=== PATIENT | male | born 1945 | race Caucasian/White ===

== ENCOUNTER → 2017-04-03 | Outpatient (CLI) | payer MEDICARE ==
[2017-04-03 17:54] LABS: BASO % 0.6 % (0.0-1.0); EOS # 0.1 10^3/uL (0.0-0.50); EOS % 2.8 % (0.0-3.0); IMMATURE GRANULOCYTE % 0.3 % (0-0); LYMPH # 1.3 10^3/uL (1.5-4.5); LYMPH % 37.7 % (24.0-44.0); MEAN CORPUSCULAR HGB CONC 34.8 g/dl (32.0-36.5); MONO # 0.4 10^3/uL (0.0-0.8); MONO % 9.9 % (0.0-5.0); NEUTROPHILS # 1.7 10^3/uL (1.8-7.7); NEUTROPHILS % 48.7 % (36.0-66.0); PLATELET COUNT, AUTOMATED 166 10^3/uL (150-450); RED CELL DISTRIBUTION WIDTH 12.7 % (11.5-14.5); WHITE BLOOD COUNT 3.5 10^3/uL (4.0-10.0)
[2017-04-03 18:02] LABS: REASON FOR REVIEW COMPREHENSIVE REVIEW
[2017-04-03 18:38] LABS: ALBUMIN 3.7 GM/DL (3.2-5.2); ALBUMIN/GLOBULIN RATIO 1.19 (1.00-1.93); ALKALINE PHOSPHATASE 70 U/L (45-117); ALT/SGPT 47 U/L (12-78); ANION GAP 5 MEQ/L (8-16); AST/SGOT 23 U/L (15-37); BILIRUBIN,TOTAL 1.4 MG/DL (0.2-1.0); BLOOD UREA NITROGEN 17 MG/DL (7-18); CALCIUM LEVEL 8.8 MG/DL (8.8-10.2); CARBON DIOXIDE LEVEL 29 MEQ/L (21-32); CHLORIDE LEVEL 109 MEQ/L (98-107); CREATININE FOR GFR 1.18 MG/DL (0.70-1.30); GLOMERULAR FILTRATION RATE > 60.0 (>42); GLUCOSE, FASTING 96 MG/DL (83-110); POTASSIUM SERUM 4.3 MEQ/L (3.5-5.1); SODIUM LEVEL 143 MEQ/L (136-145); TOTAL PROTEIN 6.8 GM/DL (6.4-8.2)
[2017-04-03 18:40] LABS: VITAMIN B12 LEVEL > 2000 PG/ML (247-911)
[2017-04-03 19:00] LABS: ERYTHROCYTE SEDIMENTATION RATE 8 mm/hr (0-20)
== END ==
LOC: M LAB 16:24
PROVIDERS: ATTEND Nurse Practitioner Family
DX: D72.819 Decreased white blood cell count, unspecified (principal)

== ENCOUNTER → 2019-04-12 | Outpatient (REF) | payer MEDICARE ==
[2019-04-12 11:59] LABS: HEMATOCRIT 41.1 % (42.0-52.0); HEMOGLOBIN 13.5 g/dl (13.5-17.5); MEAN CORPUSCULAR HEMOGLOBIN 31.5 pg (27.0-33.0); MEAN CORPUSCULAR HGB CONC 32.8 g/dl (32.0-36.5); PLATELET COUNT, AUTOMATED 130 10^3/uL (150-450); RED BLOOD COUNT 4.28 10^6/uL (4.30-6.10)
[2019-04-12 12:29] LABS: WHITE BLOOD COUNT 1.9 10^3/uL (4.0-10.0)
[2019-04-12 12:33] LABS: ATYPICAL LYMPH 6 % (0-5); EOSINOPHILS 3 % (0-3); LYMPHOCYTES 32 % (16-44); MONOCYTES 2 % (0-5); NEUTROPHILS 57 % (28-66); PLATELET ESTIMATE DECREASED (NORMAL)
[2019-04-12 12:35] LABS: ALBUMIN 3.8 GM/DL (3.2-5.2); ALT/SGPT 33 U/L (12-78); BILIRUBIN,TOTAL 1.1 MG/DL (0.2-1.0); BLOOD UREA NITROGEN 11 MG/DL (7-18); CALCIUM LEVEL 8.6 MG/DL (8.8-10.2); CARBON DIOXIDE LEVEL 28 MEQ/L (21-32); CHLORIDE LEVEL 106 MEQ/L (98-107); CHOLESTEROL LEVEL 293 MG/DL (<200); CHOLESTEROL RISK RATIO 7.325 (<5); CREATININE FOR GFR 1.05 MG/DL (0.70-1.30); GLOMERULAR FILTRATION RATE > 60.0 (>42); GLUCOSE, FASTING 90 MG/DL (70-100); HDL CHOLESTEROL 40 MG/DL (>40); LDL CHOLESTEROL 227 MG/DL (<100); NON-HDL-C 253 MG/DL; POTASSIUM SERUM 4.4 MEQ/L (3.5-5.1); SODIUM LEVEL 140 MEQ/L (136-145); TOTAL PROTEIN 6.8 GM/DL (6.4-8.2); TRIGLYCERIDES LEVEL 129 MG/DL (<150)
[2019-04-12 12:52] LABS: HEMOGLOBIN A1c 5.6 %
== END ==
LOC: M SFHCPLAZ 10:26
PROVIDERS: ATTEND Nurse Practitioner Family
DX: I25.10 Atherosclerotic heart disease of native coronary artery without angina pectoris (principal); E78.5 Hyperlipidemia, unspecified; Z12.5 Encounter for screening for malignant neoplasm of prostate
CPT/HCPCS: 36415; 80053; 80061; 83036; 84439; 84443; 85025; 90670; 90682; G0008; G0009; G0103; G0463

== ENCOUNTER → 2019-07-03 | Outpatient (CLI) | payer MEDICARE ==
[~2019-07-03] MED LIST: ASPI81TA85 PO; CALC1TAB42 PO; CIAL5TAB PO; EZET10TA21 PO; OMEG1CAP16 PO; OMEP-218 PO; OMEP40CA97 PO; [UNRECOGNIZED DRUG - CODE] PO
--- NOTE | 2019-07-04 03:49 | REP ---
Clinical: Pancytopenia. Technique: Real time tilley scale ultrasound examination using curved array transducer. Findings: The spleen is moderately enlarged measuring 11.7 x 6.1 x 12.7 cm (index = 906), with normal echotexture and no focal splenic lesion identified. The right kidney is normal in reniform shape without hydronephrosis and measures 12.3 x 5.3 x 6.1 cm. No ascites in the visualized left upper quadrant. Impression: Splenomegaly. Electronically Signed by Prem Rivera MD 07/04/2019 03:40 A
== END ==
LOC: M RAD 08:19
PROVIDERS: ATTEND Internal Medicine Hematology & Oncology
DX: R16.1 Splenomegaly, not elsewhere classified (principal); D61.818 Other pancytopenia

== ENCOUNTER → 2019-08-12 | Outpatient (CLI) | payer MEDICARE ==
--- NOTE | 2019-08-12 10:28 | REP ---
ULTRASOUND ABDOMEN: Real-time sonographic evaluation of abdomen performed. There is sludge in the gallbladder with possible tiny stones. There is no gallbladder wall thickening or pericholecystic fluid. There is no intrahepatic or extrahepatic biliary dilatation, common bile duct measuring 3 mm. Liver demonstrates diffuse increased echotexture suggesting fibrofatty infiltration. No gross mass is seen. Pancreas is not well seen due to overlying bowel gas. Spleen is not significantly enlarged measuring 11.9 x 10.1 x 6.1 cm. No intrinsic abnormality is seen. Kidneys are normal in size and echotexture, right kidney measuring 11.6 x 4.6 x 6.3 cm and left kidney 11.8 x 5.3 x 6.3 cm. There is no renal mass, hydronephrosis, or nephrolithiasis. Visualized abdominal aorta is normal in caliber. It is not seen proximally due to overlying bowel gas. Mid aspect measures 1.9 cm and distal 1.8 cm in maximum AP dimension. No ascites is seen. IMPRESSION: Mild sludge in the gallbladder with possible tiny stones. No biliary dilatation or free fluid. Diffuse fibrofatty infiltration of the liver. Spleen is normal in size. Electronically Signed by Angel Espinoza MD 08/12/2019 01:25 P
== END ==
LOC: M RAD 08:47
PROVIDERS: ATTEND Internal Medicine Hematology & Oncology
DX: K76.0 Fatty (change of) liver, not elsewhere classified (principal); D61.818 Other pancytopenia

== ENCOUNTER → 2019-11-06 | Outpatient (REF) | payer MEDICARE ==
[~2019-11-06] MED LIST changes: +CIPR-249 PO
[2019-11-06 13:45] LABS: ALBUMIN 3.7 GM/DL (3.2-5.2); ALT/SGPT 23 U/L (12-78); BILIRUBIN,TOTAL 1.1 MG/DL (0.2-1.0); BLOOD UREA NITROGEN 18 MG/DL (7-18); CALCIUM LEVEL 8.6 MG/DL (8.8-10.2); CARBON DIOXIDE LEVEL 28 MEQ/L (21-32); CHLORIDE LEVEL 107 MEQ/L (98-107); CHOLESTEROL LEVEL 281 MG/DL (<200); CHOLESTEROL RISK RATIO 8.515 (<5); CREATININE FOR GFR 1.06 MG/DL (0.70-1.30); GLOMERULAR FILTRATION RATE > 60.0 (>42); GLUCOSE, FASTING 92 MG/DL (70-100); HDL CHOLESTEROL 33 MG/DL (>40); LDL CHOLESTEROL 227 MG/DL (<100); NON-HDL-C 248 MG/DL; POTASSIUM SERUM 4.2 MEQ/L (3.5-5.1); SODIUM LEVEL 139 MEQ/L (136-145); TOTAL PROTEIN 6.9 GM/DL (6.4-8.2); TRIGLYCERIDES LEVEL 104 MG/DL (<150)
[2019-11-06 13:55] LABS: HEPATITIS B SURFACE ANTIBODY NEGATIVE (POSITIVE)
[2019-11-06 14:05] LABS: HEPATITIS B SURFACE ANTIGEN NEGATIVE (NEGATIVE)
[2019-11-06 14:34] LABS: HEPATITIS B CORE ANTIBODY IGM NEGATIVE (NEGATIVE); HIV 1&2 SCREEN CENTAUR NEGATIVE (NEGATIVE)
[2019-11-06 16:11] LABS: CHLAMYDIA DNA AMPLIFICATION NEGATIVE (NEGATIVE); GC DNA AMPLIFICATION NEGATIVE (NEGATIVE)
== END ==
LOC: M SFHCPLAZ 09:31
PROVIDERS: ATTEND Physician Assistant
DX: Z20.2 Contact with and (suspected) exposure to infections with a predominantly sexual mode of transmission (principal); I25.10 Atherosclerotic heart disease of native coronary artery without angina pectoris; E78.5 Hyperlipidemia, unspecified; Z11.3 Encounter for screening for infections with a predominantly sexual mode of transmission

== ENCOUNTER → 2020-03-04 | Outpatient (CLI) | payer MEDICARE ==
[~2020-03-04] MED LIST changes: +ASPI1CHW3 PO; -ASPI81TA85 PO; +ASPI81TA86 PO; +DOXY100C PO
--- NOTE | 2020-03-10 15:50 | REP ---
SINGLE VIEW CHEST HISTORY: Diaphragmatic hernia. COMPARISON: 09/04/2014. TECHNIQUE: Single PA view of the chest is performed. FINDINGS: There is no acute infiltrate. Lungs are clear. Heart is normal in size. The mediastinal silhouette is unremarkable. No abnormal diaphragmatic contour is seen. IMPRESSION: No active pulmonary disease. No abnormalities detected. MTDD
== END ==
LOC: M ADAMS 12:03
PROVIDERS: ATTEND Physician Assistant
DX: K44.9 Diaphragmatic hernia without obstruction or gangrene (principal)

== ENCOUNTER → 2020-05-19 | Outpatient (REF) | payer MEDICARE ==
[2020-05-19 14:38] LABS: HEMOGLOBIN 11.6 g/dl (13.5-17.5); MEAN CORPUSCULAR HEMOGLOBIN 32.5 pg (27.0-33.0); MEAN CORPUSCULAR HGB CONC 33.1 g/dl (32.0-36.5); PLATELET COUNT, AUTOMATED 204 10^3/uL (150-450); RED BLOOD COUNT 3.57 10^6/uL (4.30-6.10); WHITE BLOOD COUNT 2.3 10^3/uL (4.0-10.0)
[2020-05-19 15:15] LABS: CHOLESTEROL RISK RATIO 7.457 (<5); FREE T4 1.29 NG/DL (0.76-1.46); PROSTATIC SPECIFIC AG MONITOR 18.7 NG/ML (< 4.00); THYROID STIMULATING HORMONE 2.32 uIU/ML (0.358-3.740)
[2020-05-19 15:37] LABS: ATYPICAL LYMPH 13 % (0-5); BASOPHILS 2 % (0-1); LYMPHOCYTES 31 % (16-44); METAMYELOCYTES 1 % (0-0); MONOCYTES 5 % (0-5); MYELOCYTES 1 % (0-0); NEUTROPHILS 40 % (28-66); PLATELET ESTIMATE NORMAL (NORMAL)
== END ==
LOC: M PLALAB 10:04
PROVIDERS: ATTEND Nurse Practitioner Family
DX: D61.818 Other pancytopenia (principal); E78.5 Hyperlipidemia, unspecified; R97.20 Elevated prostate specific antigen [PSA]

== ENCOUNTER → 2020-07-31 | Outpatient (REF) | payer MEDICARE ==
[2020-07-31 13:09] LABS: BASO % 0.7 % (0.0-1.0); EOS % 2.2 % (0.0-3.0); HEMOGLOBIN 10.8 g/dl (13.5-17.5); LYMPH # 0.5 10^3/uL (1.5-5.0); LYMPH % 36.8 % (24.0-44.0); MEAN CORPUSCULAR HEMOGLOBIN 32.8 pg (27.0-33.0); MEAN CORPUSCULAR HGB CONC 32.7 g/dl (32.0-36.5); MEAN CORPUSCULAR VOLUME 100.3 fl (80.0-96.0); MONO # 0.1 10^3/uL (0.0-0.8); MONO % 7.4 % (2.0-8.0); NEUTROPHILS % 52.2 % (36.0-66.0); PLATELET COUNT, AUTOMATED 137 10^3/uL (150-450); RED BLOOD COUNT 3.29 10^6/uL (4.30-6.10); WHITE BLOOD COUNT 1.4 10^3/uL (4.0-10.0)
[2020-07-31 13:10] LABS: APPEARANCE, URINE CLEAR (CLEAR); BACTERIA, URINE AUTO NEGATIVE (NEGATIVE); BILIRUBIN, URINE AUTO NEGATIVE (NEGATIVE); BLOOD, URINE BLOOD NEGATIVE (NEGATIVE); COLOR, URINE STRAW (YELLOW); GLUCOSE, URINE (UA) AUTO NEGATIVE (NEGATIVE); KETONE, URINE AUTO NEGATIVE (NEGATIVE); LEUKOCYTE ESTERASE, URINE AUTO NEGATIVE (NEGATIVE); MUCUS, URINE SMALL (NEGATIVE); NITRITE, URINE AUTO NEGATIVE (NEGATIVE); PROTEIN, URINE AUTO NEGATIVE (NEGATIVE); RBC, URINE AUTO 0 /HPF (0-3); SPECIFIC GRAVITY URINE AUTO 1.005 (1.002-1.035); SQUAMOUS EPITHELIAL CELL UR AU 0 /HPF (0-6); UROBILINOGEN, URINE AUTO 0.2 mg/dL (0.0-2.0); WBC, URINE AUTO 1 /HPF (0-3)
[2020-07-31 13:18] LABS: INR 1.05; PROTHROMBIN TIME 13.9 SECONDS (12.5-14.3)
[2020-07-31 13:19] LABS: PARTIAL THROMBOPLASTIN TIME 40.5 SECONDS (24.2-38.5)
[2020-07-31 13:36] LABS: NEUTROPHILS # 0.7 10^3/uL (1.5-8.5)
[2020-07-31 13:40] LABS: ALBUMIN 3.3 GM/DL (3.2-5.2); ALT/SGPT 23 U/L (12-78); BILIRUBIN,TOTAL 0.5 MG/DL (0.2-1.0); BLOOD UREA NITROGEN 15 MG/DL (7-18); CARBON DIOXIDE LEVEL 32 MEQ/L (21-32); CHLORIDE LEVEL 103 MEQ/L (98-107); CREATININE FOR GFR 0.98 MG/DL (0.70-1.30); GLOMERULAR FILTRATION RATE > 60.0 (>42); GLUCOSE, FASTING 109 MG/DL (70-100); NT-PRO BNP 316 PG/ML (<450); POTASSIUM SERUM 4.8 MEQ/L (3.5-5.1); SODIUM LEVEL 139 MEQ/L (136-145); TOTAL PROTEIN 6.9 GM/DL (6.4-8.2); TROPONIN I < 0.02 NG/ML (< 0.10)
== END ==
LOC: M SFHCPLAZ 09:51 → M SFHCADAM 09:52
PROVIDERS: ATTEND Family Medicine
DX: D61.818 Other pancytopenia (principal); I25.10 Atherosclerotic heart disease of native coronary artery without angina pectoris; Z01.818 Encounter for other preprocedural examination

== ENCOUNTER → 2020-09-01 | Outpatient (REF) | payer MEDICARE ==
[2020-09-01 17:50] LABS: BASO % 0.8 % (0.0-1.0); EOS % 0.8 % (0.0-3.0); HEMATOCRIT 28.8 % (42.0-52.0); HEMOGLOBIN 9.2 g/dl (13.5-17.5); LYMPH # 0.7 10^3/uL (1.5-5.0); LYMPH % 29.8 % (24.0-44.0); MEAN CORPUSCULAR HEMOGLOBIN 32.7 pg (27.0-33.0); MEAN CORPUSCULAR HGB CONC 31.9 g/dl (32.0-36.5); MEAN CORPUSCULAR VOLUME 102.5 fl (80.0-96.0); MONO # 0.2 10^3/uL (0.0-0.8); MONO % 9.2 % (2.0-8.0); NEUTROPHILS # 1.4 10^3/uL (1.5-8.5); NEUTROPHILS % 58.1 % (36.0-66.0); PLATELET COUNT, AUTOMATED 177 10^3/uL (150-450); RED BLOOD COUNT 2.81 10^6/uL (4.30-6.10); WHITE BLOOD COUNT 2.4 10^3/uL (4.0-10.0)
== END ==
LOC: M LABDRWAD 16:27 → M LAB REF 16:27
PROVIDERS: ATTEND Urology
DX: S37.8 Injury of other urinary and pelvic organs (principal); X58.XXXD Exposure to other specified factors, subsequent encounter; Y92.9 Unspecified place or not applicable

== ENCOUNTER → 2020-09-09 | Outpatient (REF) | payer MEDICARE ==
[2020-09-09 15:26] LABS: HEMATOCRIT 29.2 % (42.0-52.0); HEMOGLOBIN 9.8 g/dl (13.5-17.5); MEAN CORPUSCULAR HEMOGLOBIN 33.4 pg (27.0-33.0); MEAN CORPUSCULAR HGB CONC 33.6 g/dl (32.0-36.5); MEAN CORPUSCULAR VOLUME 99.7 fl (80.0-96.0); PLATELET COUNT, AUTOMATED 133 10^3/uL (150-450); RED BLOOD COUNT 2.93 10^6/uL (4.30-6.10); WHITE BLOOD COUNT 1.6 10^3/uL (4.0-10.0)
[2020-09-09 15:55] LABS: BASOPHILS 1 % (0-1); EOSINOPHILS 1 % (0-3); LYMPHOCYTES 43 % (16-44); MONOCYTES 4 % (0-5); NEUTROPHILS 51 % (28-66); PLATELET ESTIMATE DECREASED (NORMAL)
[2020-09-09 15:56] LABS: ALBUMIN 3.4 GM/DL (3.2-5.2); BLOOD UREA NITROGEN 14 MG/DL (7-18); C REACTIVE PROTEIN QUANTITATIV 8.68 MG/DL (0.00-0.30); CALCIUM LEVEL 9.3 MG/DL (8.8-10.2); CARBON DIOXIDE LEVEL 26 MEQ/L (21-32); CHLORIDE LEVEL 101 MEQ/L (98-107); CREATININE FOR GFR 0.99 MG/DL (0.70-1.30); GLOMERULAR FILTRATION RATE > 60.0 (>42); GLUCOSE, FASTING 104 MG/DL (70-100); PHOSPHORUS LEVEL 3.8 MG/DL (2.5-4.9); POTASSIUM SERUM 4.7 MEQ/L (3.5-5.1); SODIUM LEVEL 134 MEQ/L (136-145); URIC ACID 5.1 MG/DL (3.5-7.2)
== END ==
LOC: M SFHCPLAZ 14:38
PROVIDERS: ATTEND Nurse Practitioner Family
DX: M19.072 Primary osteoarthritis, left ankle and foot (principal); M79.672 Pain in left foot
CPT/HCPCS: 36415; 73630; 80069; 84550; 85025; 86140; G0463

== ENCOUNTER → 2020-09-09 | Outpatient (CLI) | payer MEDICARE ==
--- NOTE | 2020-09-09 15:32 | REPPI ---
INDICATION: M79.672 LEFT FOOT PAIN COMPARISON: 11/22/2007. TECHNIQUE: There are four views. 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 There is joint space narrowing of the PIP and DIP articulations, unchanged. Mineralization and joint spaces otherwise are unremarkable. There are tiny calcaneal plantar and Achilles spurs. 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 <Electronically signed by Angel Monahan > 09/09/20 [id number]
== END ==
LOC: M PLAIMG 14:38
PROVIDERS: ATTEND Nurse Practitioner Family
DX: M19.072 Primary osteoarthritis, left ankle and foot (principal); M79.672 Pain in left foot

== ENCOUNTER → 2020-11-30 | Outpatient (REF) | payer MEDICARE ==
[~2020-11-30] MED LIST changes: +OMEP40CA4 PO; -OMEP40CA97 PO
== END ==
LOC: M LABDRWAD 17:59
PROVIDERS: ATTEND Podiatrist Foot & Ankle Surgery
DX: M10.071 Idiopathic gout, right ankle and foot (principal)

== ENCOUNTER → 2021-02-01 | Outpatient (REF) | payer MEDICARE ==
[~2021-02-01] MED LIST changes: -DOXY100C PO; +DOXY100C3 PO
[2021-02-01 13:25] LABS: BLOOD UREA NITROGEN 20 MG/DL (7-18); CREATININE FOR GFR 1.18 MG/DL (0.70-1.30); GLOMERULAR FILTRATION RATE > 60.0 (>42)
== END ==
LOC: M LABDRWAD 12:28
PROVIDERS: ATTEND Surgery Vascular Surgery
DX: M31.6 Other giant cell arteritis (principal)

== ENCOUNTER → 2021-03-09 | Outpatient (CLI) | payer MEDICARE ==
--- NOTE | 2021-03-09 11:23 | REP ---
INDICATION: ACUTE BILATERAL THORACIC BACK PAIN. COMPARISON: None. TECHNIQUE: AP and lateral views FINDINGS: There is a grade 2 T7 anterior wedge compression deformity. There is anterior disc space narrowing at 1 level above and 1 level below. The pedicles are intact bilaterally. IMPRESSION: Age undetermined thoracic spine compression fracture as described above. <Electronically signed by Vladimir Ivy > 03/09/21 [id number]
== END ==
LOC: M ADAMS 11:00
PROVIDERS: ATTEND Psychiatry & Neurology Neurology
DX: R93.7 Abnormal findings on diagnostic imaging of other parts of musculoskeletal system (principal); M54.6 Pain in thoracic spine

== ENCOUNTER → 2021-08-10 | Outpatient (REF) | payer MEDICARE ==
[~2021-08-10] MED LIST changes: +OMEP-173 PO; -OMEP-218 PO
[2021-08-10 17:42] LABS: BASO % 0.4 % (0.0-1.0); EOS % 0.4 % (0.0-3.0); HEMATOCRIT 30.9 % (42.0-52.0); HEMOGLOBIN 10.3 g/dl (13.5-17.5); LYMPH # 0.5 10^3/uL (1.5-5.0); LYMPH % 19.7 % (24.0-44.0); MEAN CORPUSCULAR HEMOGLOBIN 34.2 pg (27.0-33.0); MEAN CORPUSCULAR HGB CONC 33.3 g/dl (32.0-36.5); MEAN CORPUSCULAR VOLUME 102.7 fl (80.0-96.0); MONO # 0.2 10^3/uL (0.0-0.8); MONO % 7.1 % (2.0-8.0); NEUTROPHILS # 1.8 10^3/uL (1.5-8.5); PLATELET COUNT, AUTOMATED 139 10^3/uL (150-450); RED BLOOD COUNT 3.01 10^6/uL (4.30-6.10); WHITE BLOOD COUNT 2.5 10^3/uL (4.0-10.0)
[2021-08-10 18:04] LABS: CK-MB VALUE MASS < 1.0 NG/ML (<3.6); CPK CREATINE PHOSPHOKINASE 52 U/L (39-308); MB/CK RELATIVE INDEX 1.92 (< OR =4)
[2021-08-10 18:11] LABS: BLOOD UREA NITROGEN 15 MG/DL (7-18); CARBON DIOXIDE LEVEL 28 MEQ/L (21-32); CHLORIDE LEVEL 104 MEQ/L (98-107); CREATININE FOR GFR 1.15 MG/DL (0.70-1.30); GLOMERULAR FILTRATION RATE > 60.0 (>42); GLUCOSE, FASTING 97 MG/DL (70-100); POTASSIUM SERUM 4.4 MEQ/L (3.5-5.1); SODIUM LEVEL 138 MEQ/L (136-145)
[2021-08-10 18:12] LABS: ALBUMIN 3.2 GM/DL (3.2-5.2); ALT/SGPT 22 U/L (12-78); BILIRUBIN,TOTAL 0.5 MG/DL (0.2-1.0); CALCIUM LEVEL 8.8 MG/DL (8.8-10.2); CHOLESTEROL LEVEL 188 MG/DL (<200); CHOLESTEROL RISK RATIO 5.529 (<5); FREE T4 1.12 NG/DL (0.76-1.46); HDL CHOLESTEROL 34 MG/DL (>40); HEMOGLOBIN A1c 6.2 %; LDL CHOLESTEROL 136 MG/DL (<100); NON-HDL-C 154 MG/DL; NT-PRO BNP 927 PG/ML (<450); TOTAL PROTEIN 6.6 GM/DL (6.4-8.2); TRIGLYCERIDES LEVEL 90 MG/DL (<150)
[2021-08-12 23:07] LABS: PSA % FREE 19.2 % (.); PSA FREE 1.79 ng/mL; PSA TOTAL 9.3 ng/mL (0.0-4.0)
== END ==
LOC: M SFHCPLAZ 13:21
PROVIDERS: ATTEND Nurse Practitioner Family
DX: E78.5 Hyperlipidemia, unspecified (principal); D61.818 Other pancytopenia; R60.0 Localized edema; N40.0 Benign prostatic hyperplasia without lower urinary tract symptoms; R06.02 Shortness of breath; Z79.52 Long term (current) use of systemic steroids; Z79.899 Other long term (current) drug therapy

== ENCOUNTER → 2021-11-22 | Outpatient (CLI) | payer MEDICARE | LOC: M ADAMS 14:23 | PROVIDERS: ATTEND Physician Assistant | DX: R91.8 Other nonspecific abnormal finding of lung field (principal); S20.212A Contusion of left front wall of thorax, initial encounter; X58.XXXA Exposure to other specified factors, initial encounter; Y92.9 Unspecified place or not applicable; Y93.9 Activity, unspecified; Y99.9 Unspecified external cause status ==

== ENCOUNTER → 2021-11-22 | Outpatient (REF) | payer MEDICARE | LOC: M SFHCADAM 14:17 | PROVIDERS: ATTEND Physician Assistant | DX: N40.0 Benign prostatic hyperplasia without lower urinary tract symptoms (principal) ==

== ENCOUNTER → 2022-05-10 | Outpatient (REF) | payer MEDICARE ==
[2022-05-10 17:54] LABS: BASO % 0.4 % (0.0-1.0); HEMATOCRIT 28.1 % (42.0-52.0); HEMOGLOBIN 9.1 g/dl (13.5-17.5); LYMPH # 0.3 10^3/uL (1.5-5.0); LYMPH % 5.8 % (24.0-44.0); MEAN CORPUSCULAR HEMOGLOBIN 35.4 pg (27.0-33.0); MEAN CORPUSCULAR HGB CONC 32.4 g/dl (32.0-36.5); MEAN CORPUSCULAR VOLUME 109.3 fl (80.0-96.0); MONO # 0.3 10^3/uL (0.0-0.8); MONO % 5.9 % (2.0-8.0); NEUTROPHILS # 4.6 10^3/uL (1.5-8.5); RED BLOOD COUNT 2.57 10^6/uL (4.30-6.10); WHITE BLOOD COUNT 5.4 10^3/uL (4.0-10.0)
[2022-05-10 18:10] LABS: APPEARANCE, URINE MANUAL CLEAR (CLEAR); BILIRUBIN, URINE MANUAL NEGATIVE (NEGATIVE); COLOR, URINE MANUAL DK YELLOW (YELLOW); GLUCOSE, URINE (UA) MANUAL NEGATIVE (NEGATIVE); KETONE, URINE MANUAL 2+ mg/dL (NEGATIVE); NITRITE, URINE MANUAL NEGATIVE (NEGATIVE); PROTEIN, URINE MANUAL 2+ mg/dL (NEGATIVE); SPECIFIC GRAVITY,URINE MANUAL 1.025 (1.002-1.035); UROBILINOGEN, URINE MANUAL NORMAL (NORMAL)
[2022-05-10 18:11] LABS: BLOOD URINE MANUAL TRACE (NEGATIVE); LEUKOCYTE ESTERASE, URINE MAN TRACE (NEGATIVE)
[2022-05-10 18:27] LABS: HEMOGLOBIN A1c 5.8 % (4.0-6.0)
[2022-05-10 18:43] LABS: PLATELET COUNT, AUTOMATED 96 10^3/uL (150-450)
[2022-05-10 19:01] LABS: ALBUMIN 2.7 G/DL (3.2-5.2); CARBON DIOXIDE LEVEL 25 MMOL/L (20-31); CHLORIDE LEVEL 101 MMOL/L (98-107); POTASSIUM SERUM 3.9 MMOL/L (3.5-5.1); SODIUM LEVEL 138 MMOL/L (136-145)
[2022-05-10 19:06] LABS: ALKALINE PHOSPHATASE 64 U/L (46-116)
[2022-05-10 19:07] LABS: ALT/SGPT 13 U/L (7.0-40); BLOOD UREA NITROGEN 15 MG/DL (9-23); CALCIUM LEVEL 8.1 MG/DL (8.3-10.6); GLUCOSE, FASTING 128 MG/DL (74-106)
[2022-05-10 19:09] LABS: AST/SGOT 16 U/L (<34); CREATININE FOR GFR 0.97 MG/DL (0.70-1.30); GLOMERULAR FILTRATION RATE > 60.0 (>42)
[2022-05-10 19:40] LABS: BACTERIA, URINE MOD AMOUNT; MUCUS, URINE LARGE AMOUNT (NEGATIVE); SQUAMOUS EPITHELIAL CELL URINE SMALL AMOUNT /hpf (SMALL AMT)
== END ==
LOC: M SFHCADAM 11:54
PROVIDERS: ATTEND Family Medicine
DX: R73.03 Prediabetes (principal); D72.819 Decreased white blood cell count, unspecified; N30.90 Cystitis, unspecified without hematuria; M31.6 Other giant cell arteritis

== ENCOUNTER → 2022-05-10 | Outpatient (CLI) | payer MEDICARE | LOC: M ADAMS 12:00 | PROVIDERS: ATTEND Family Medicine | DX: R53.1 Weakness (principal) ==

== ENCOUNTER → 2022-05-17 | Outpatient (CLI) | payer MEDICARE ==
[2022-05-17 09:15] LABS: BASO % 0.2 % (0.0-1.0); HEMATOCRIT 28.2 % (42.0-52.0); HEMOGLOBIN 9.2 g/dl (13.5-17.5); LYMPH % 15.7 % (24.0-44.0); MEAN CORPUSCULAR HEMOGLOBIN 35.5 pg (27.0-33.0); MEAN CORPUSCULAR HGB CONC 32.6 g/dl (32.0-36.5); MEAN CORPUSCULAR VOLUME 108.9 fl (80.0-96.0); MONO # 0.2 10^3/uL (0.0-0.8); MONO % 3.3 % (2.0-8.0); NEUTROPHILS # 4.9 10^3/uL (1.5-8.5); PLATELET COUNT, AUTOMATED 113 10^3/uL (150-450); RED BLOOD COUNT 2.59 10^6/uL (4.30-6.10); WHITE BLOOD COUNT 6.1 10^3/uL (4.0-10.0)
== END ==
LOC: M LAB 08:43
PROVIDERS: ATTEND Family Medicine
DX: D46.9 Myelodysplastic syndrome, unspecified (principal); M31.6 Other giant cell arteritis

== ENCOUNTER → 2022-05-18 | Outpatient (CLI) | payer MEDICARE | LOC: M ADAMS 10:30 | PROVIDERS: ATTEND Physician Assistant | DX: J20.9 Acute bronchitis, unspecified (principal) ==

== ENCOUNTER → 2022-05-23 | Outpatient (REF) | payer MEDICARE | LOC: M SFHCADAM 10:56 | PROVIDERS: ATTEND Physician Assistant | DX: M31.6 Other giant cell arteritis (principal) ==

== ENCOUNTER → 2022-05-23 | Outpatient (CLI) | payer MEDICARE ==
[2022-05-23 16:46] LABS: CPK CREATINE PHOSPHOKINASE 17 U/L (46-171)
[2022-05-23 17:21] LABS: HEPATITIS B SURFACE ANTIBODY NEGATIVE (POSITIVE)
[2022-05-23 17:32] LABS: HEPATITIS B SURFACE ANTIGEN NEGATIVE (NEGATIVE)
[2022-05-23 17:53] LABS: HEPATITIS C VIRUS ABY INDEX 0.1 INDEX (<0.8)
[2022-05-27 21:08] LABS: ALDOLASE 4.1 U/L (3.3-10.3); ANCA-ATYPICAL <1:20 titer (Neg:<1:20); CYTOPLASMIC NEUTROP AB ANCA-C <1:20 titer (Neg:<1:20); G6PD2 2.71 x10E6/uL (4.14-5.80); HEPATITIS B CORE ANTIBODY IGG Negative (Negative); PERINUCLEAR AB ANCA-P <1:20 titer (Neg:<1:20)
== END ==
LOC: M LABDRWAD 11:10
PROVIDERS: ATTEND Internal Medicine
DX: M31.6 Other giant cell arteritis (principal); M25.40 Effusion, unspecified joint; R29.898 Other symptoms and signs involving the musculoskeletal system; Z11.59 Encounter for screening for other viral diseases

== ENCOUNTER → 2022-06-17 | Outpatient (REF) | payer MEDICARE | LOC: M SFHCADAM 08:51 | PROVIDERS: ATTEND Internal Medicine | DX: M31.6 Other giant cell arteritis (principal) ==

== ENCOUNTER → 2022-07-01 | Outpatient (REF) | payer MEDICARE | LOC: M SFHCADAM 09:01 | PROVIDERS: ATTEND Internal Medicine | DX: M31.6 Other giant cell arteritis (principal) ==

== ENCOUNTER → 2022-07-11 | Outpatient (REF) | payer MEDICARE ==
[2022-07-11 14:30] LABS: BASO % 0.1 % (0.0-1.0); HEMATOCRIT 29.4 % (42.0-52.0); HEMOGLOBIN 9.7 g/dl (13.5-17.5); LYMPH # 0.3 10^3/uL (1.5-5.0); LYMPH % 4.9 % (24.0-44.0); MEAN CORPUSCULAR HEMOGLOBIN 37.7 pg (27.0-33.0); MONO # 0.3 10^3/uL (0.0-0.8); MONO % 4.6 % (2.0-8.0); NEUTROPHILS # 5.7 10^3/uL (1.5-8.5); NEUTROPHILS % 85.9 % (36.0-66.0); PLATELET COUNT, AUTOMATED 150 10^3/uL (150-450); RED BLOOD COUNT 2.57 10^6/uL (4.30-6.10); WHITE BLOOD COUNT 6.7 10^3/uL (4.0-10.0)
[2022-07-11 14:33] LABS: MEAN CORPUSCULAR VOLUME 114.4 fl (80.0-96.0)
[2022-07-11 14:42] LABS: ERYTHROCYTE SEDIMENTATION RATE 70 mm/hr (0-20)
[2022-07-11 14:53] LABS: ALBUMIN 3.1 G/DL (3.2-5.2); ALKALINE PHOSPHATASE 62 U/L (46-116); ALT/SGPT 28 U/L (7.0-40); AST/SGOT 12 U/L (<34); BILIRUBIN,DIRECT 0.2 MG/DL (<0.4); BILIRUBIN,TOTAL 0.5 MG/DL (0.3-1.2); BLOOD UREA NITROGEN 22 MG/DL (9-23); CALCIUM LEVEL 8.9 MG/DL (8.3-10.6); CARBON DIOXIDE LEVEL 29 MMOL/L (20-31); CHLORIDE LEVEL 101 MMOL/L (98-107); CREATININE FOR GFR 0.98 MG/DL (0.70-1.30); GLOMERULAR FILTRATION RATE > 60.0 (>42); GLUCOSE, FASTING 118 MG/DL (74-106); POTASSIUM SERUM 5.3 MMOL/L (3.5-5.1); SODIUM LEVEL 137 MMOL/L (136-145); TOTAL PROTEIN 6.5 G/DL (5.7-8.2)
== END ==
LOC: M SFHCRHEU 11:13
PROVIDERS: ATTEND Internal Medicine
DX: M31.6 Other giant cell arteritis (principal)

== ENCOUNTER → 2022-07-29 | Outpatient (REF) | payer MEDICARE | LOC: M SFHCADAM 10:40 | PROVIDERS: ATTEND Internal Medicine | DX: M31.6 Other giant cell arteritis (principal) ==

== ENCOUNTER → 2022-08-02 | Outpatient (REF) | payer MEDICARE ==
[2022-08-02 17:09] LABS: BASO % 0.2 % (0.0-1.0); HEMATOCRIT 31.5 % (42.0-52.0); HEMOGLOBIN 10.2 g/dl (13.5-17.5); LYMPH # 0.3 10^3/uL (1.5-5.0); LYMPH % 5.8 % (24.0-44.0); MEAN CORPUSCULAR HEMOGLOBIN 37.9 pg (27.0-33.0); MEAN CORPUSCULAR HGB CONC 32.4 g/dl (32.0-36.5); MONO # 0.1 10^3/uL (0.0-0.8); NEUTROPHILS # 3.9 10^3/uL (1.5-8.5); NEUTROPHILS % 89.8 % (36.0-66.0); PLATELET COUNT, AUTOMATED 105 10^3/uL (150-450); RED BLOOD COUNT 2.69 10^6/uL (4.30-6.10); WHITE BLOOD COUNT 4.3 10^3/uL (4.0-10.0)
[2022-08-02 17:13] LABS: MEAN CORPUSCULAR VOLUME 117.1 fl (80.0-96.0)
[2022-08-02 17:55] LABS: ALBUMIN 3.5 G/DL (3.2-5.2); ALKALINE PHOSPHATASE 57 U/L (46-116); ALT/SGPT 14 U/L (7.0-40); AST/SGOT 11 U/L (<34); BILIRUBIN,DIRECT 0.3 MG/DL (<0.4); BILIRUBIN,TOTAL 1.1 MG/DL (0.3-1.2); BLOOD UREA NITROGEN 20 MG/DL (9-23); CARBON DIOXIDE LEVEL 30 MMOL/L (20-31); CHLORIDE LEVEL 102 MMOL/L (98-107); GLUCOSE, FASTING 145 MG/DL (74-106); POTASSIUM SERUM 5.2 MMOL/L (3.5-5.1); SODIUM LEVEL 138 MMOL/L (136-145); TOTAL 25(OH) VITAMIN D 31.1 NG/ML (20.0-100.0); TOTAL PROTEIN 6.2 G/DL (5.7-8.2)
[2022-08-02 18:24] LABS: ERYTHROCYTE SEDIMENTATION RATE 44 mm/hr (0-20)
[2022-08-02 18:25] LABS: PLATELET ESTIMATE DECREASED (NORMAL)
[2022-08-02 20:28] LABS: CREATININE FOR GFR 1.06 MG/DL (0.70-1.30); GLOMERULAR FILTRATION RATE > 60.0 (>42)
== END ==
LOC: M SFHCRHEU 12:56
PROVIDERS: ATTEND Internal Medicine
DX: M31.6 Other giant cell arteritis (principal); Z79.899 Other long term (current) drug therapy

== ENCOUNTER → 2022-08-23 | Outpatient (REF) | payer MEDICARE ==
[2022-08-23 18:00] LABS: BASO % 0.2 % (0.0-1.0); HEMATOCRIT 33.7 % (42.0-52.0); LYMPH # 0.2 10^3/uL (1.5-5.0); LYMPH % 3.5 % (24.0-44.0); MEAN CORPUSCULAR HEMOGLOBIN 38.2 pg (27.0-33.0); MEAN CORPUSCULAR HGB CONC 32.6 g/dl (32.0-36.5); MONO # 0.3 10^3/uL (0.0-0.8); MONO % 5.2 % (2.0-8.0); NEUTROPHILS # 4.8 10^3/uL (1.5-8.5); NEUTROPHILS % 89.4 % (36.0-66.0); PLATELET COUNT, AUTOMATED 130 10^3/uL (150-450); RED BLOOD COUNT 2.88 10^6/uL (4.30-6.10); WHITE BLOOD COUNT 5.4 10^3/uL (4.0-10.0)
[2022-08-23 18:30] LABS: ALBUMIN 3.3 G/DL (3.2-5.2); ALKALINE PHOSPHATASE 58 U/L (46-116); ALT/SGPT 48 U/L (7.0-40); AST/SGOT 20 U/L (<34); BILIRUBIN,DIRECT 0.3 MG/DL (<0.4); BILIRUBIN,TOTAL 0.8 MG/DL (0.3-1.2); BLOOD UREA NITROGEN 21 MG/DL (9-23); CALCIUM LEVEL 8.9 MG/DL (8.3-10.6); CARBON DIOXIDE LEVEL 30 MMOL/L (20-31); CHLORIDE LEVEL 101 MMOL/L (98-107); CREATININE FOR GFR 1.06 MG/DL (0.70-1.30); GLOMERULAR FILTRATION RATE > 60.0 (>42); GLUCOSE, FASTING 156 MG/DL (74-106); POTASSIUM SERUM 4.9 MMOL/L (3.5-5.1); SODIUM LEVEL 138 MMOL/L (136-145); TOTAL PROTEIN 6.1 G/DL (5.7-8.2)
[2022-08-23 19:10] LABS: PLATELET ESTIMATE NORMAL (NORMAL)
[2022-08-23 19:19] LABS: ERYTHROCYTE SEDIMENTATION RATE 49 mm/hr (0-20)
== END ==
LOC: M SFHCADAM 13:55
PROVIDERS: ATTEND Internal Medicine
DX: M31.6 Other giant cell arteritis (principal)

== ENCOUNTER → 2022-09-06 | Outpatient (CLI) | payer MEDICARE | LOC: M WHC 12:18 | PROVIDERS: ATTEND Internal Medicine | DX: Z79.52 Long term (current) use of systemic steroids (principal) ==

== ENCOUNTER → 2022-09-21 | Outpatient (REF) | payer MEDICARE ==
[~2022-09-21] MED LIST changes: +ASPI-655 PO; -ASPI1CHW3 PO
== END ==
LOC: M SFHCADAM 09:29
PROVIDERS: ATTEND Physician Assistant
DX: R97.20 Elevated prostate specific antigen [PSA] (principal); M31.6 Other giant cell arteritis

== ENCOUNTER → 2022-09-23 | Outpatient (REF) | payer MEDICARE ==
[2022-09-23 17:23] LABS: HEMATOCRIT 31.3 % (42.0-52.0); HEMOGLOBIN 10.6 g/dl (13.5-17.5); LYMPH # 0.2 10^3/uL (1.5-5.0); MEAN CORPUSCULAR HGB CONC 33.9 g/dl (32.0-36.5); MEAN CORPUSCULAR VOLUME 112.2 fl (80.0-96.0); MONO # 0.2 10^3/uL (0.0-0.8); NEUTROPHILS # 4.3 10^3/uL (1.5-8.5); NEUTROPHILS % 89.3 % (36.0-66.0); PLATELET COUNT, AUTOMATED 117 10^3/uL (150-450); RED BLOOD COUNT 2.79 10^6/uL (4.30-6.10); WHITE BLOOD COUNT 4.8 10^3/uL (4.0-10.0)
[2022-09-23 17:34] LABS: ALBUMIN 3.2 G/DL (3.2-5.2); ALKALINE PHOSPHATASE 58 U/L (46-116); ALT/SGPT 20 U/L (7.0-40); AST/SGOT 14 U/L (<34); BILIRUBIN,DIRECT 0.2 MG/DL (<0.4); BILIRUBIN,TOTAL 0.6 MG/DL (0.3-1.2); BLOOD UREA NITROGEN 21 MG/DL (9-23); CALCIUM LEVEL 8.5 MG/DL (8.3-10.6); CARBON DIOXIDE LEVEL 28 MMOL/L (20-31); CHLORIDE LEVEL 102 MMOL/L (98-107); CREATININE FOR GFR 1.06 MG/DL (0.70-1.30); GLOMERULAR FILTRATION RATE > 60.0 (>42); GLUCOSE, FASTING 151 MG/DL (74-106); POTASSIUM SERUM 4.6 MMOL/L (3.5-5.1); SODIUM LEVEL 137 MMOL/L (136-145); TOTAL PROTEIN 5.9 G/DL (5.7-8.2)
[2022-09-23 17:39] LABS: ERYTHROCYTE SEDIMENTATION RATE 54 mm/hr (0-20)
[2022-09-23 18:01] LABS: HEMOGLOBIN A1c 6.2 % (4.0-6.0)
== END ==
LOC: M SFHCRHEU 13:00
PROVIDERS: ATTEND Internal Medicine
DX: R73.9 Hyperglycemia, unspecified (principal); M31.6 Other giant cell arteritis

== ENCOUNTER → 2022-10-03 | Outpatient (CLI) | payer MEDICARE | LOC: M ADAMS 13:09 | PROVIDERS: ATTEND Physician Assistant | DX: J06.9 Acute upper respiratory infection, unspecified (principal); R05.2 Subacute cough ==

== ENCOUNTER → 2022-10-06 | Outpatient (REF) | payer MEDICARE ==
[2022-10-06 17:21] LABS: BLOOD UREA NITROGEN 21 MG/DL (9-23); CALCIUM LEVEL 8.6 MG/DL (8.3-10.6); CARBON DIOXIDE LEVEL 27 MMOL/L (20-31); CHLORIDE LEVEL 103 MMOL/L (98-107); CREATININE FOR GFR 1.08 MG/DL (0.70-1.30); GLOMERULAR FILTRATION RATE > 60.0 (>42); GLUCOSE, FASTING 200 MG/DL (74-106); POTASSIUM SERUM 4.6 MMOL/L (3.5-5.1); SODIUM LEVEL 137 MMOL/L (136-145)
[2022-10-06 17:37] LABS: HEMOGLOBIN A1c 6.1 % (4.0-6.0)
== END ==
LOC: M SFHCADAM 13:10
PROVIDERS: ATTEND Internal Medicine
DX: M31.6 Other giant cell arteritis (principal); R73.03 Prediabetes; R60.0 Localized edema

== ENCOUNTER → 2022-11-02 | Outpatient (REF) | payer MEDICARE | LOC: M SFHCDERM 16:01 | PROVIDERS: ATTEND Nurse Practitioner Family | DX: C44.319 Basal cell carcinoma of skin of other parts of face (principal) ==

== ENCOUNTER → 2022-12-02 | Outpatient (CLI) | payer MEDICARE | LOC: M RAD 13:33 | PROVIDERS: ATTEND Physician Assistant | DX: N50.89 Other specified disorders of the male genital organs (principal) ==

== ENCOUNTER → 2022-12-15 | Outpatient (REF) | payer MEDICARE ==
[2022-12-15 16:52] LABS: BASO % 0.3 % (0.0-1.0); EOS % 0.3 % (0.0-3.0); HEMOGLOBIN 11.5 g/dl (13.5-17.5); LYMPH # 0.9 10^3/uL (1.5-5.0); LYMPH % 26.1 % (24.0-44.0); MEAN CORPUSCULAR HEMOGLOBIN 37.6 pg (27.0-33.0); MEAN CORPUSCULAR HGB CONC 33.8 g/dl (32.0-36.5); MEAN CORPUSCULAR VOLUME 111.1 fl (80.0-96.0); MONO # 0.3 10^3/uL (0.0-0.8); MONO % 8.3 % (2.0-8.0); NEUTROPHILS # 2.3 10^3/uL (1.5-8.5); NEUTROPHILS % 64.2 % (36.0-66.0); PLATELET COUNT, AUTOMATED 105 10^3/uL (150-450); RED BLOOD COUNT 3.06 10^6/uL (4.30-6.10); WHITE BLOOD COUNT 3.6 10^3/uL (4.0-10.0)
[2022-12-15 17:19] LABS: ALBUMIN 3.4 G/DL (3.2-5.2); ALKALINE PHOSPHATASE 63 U/L (46-116); ALT/SGPT 14 U/L (7.0-40); AST/SGOT < 8 U/L (<34); BILIRUBIN,DIRECT 0.2 MG/DL (<0.4); BILIRUBIN,TOTAL 0.8 MG/DL (0.3-1.2); BLOOD UREA NITROGEN 20 MG/DL (9-23); CALCIUM LEVEL 8.8 MG/DL (8.3-10.6); CARBON DIOXIDE LEVEL 30 MMOL/L (20-31); CHLORIDE LEVEL 106 MMOL/L (98-107); CREATININE FOR GFR 1.04 MG/DL (0.70-1.30); GLOMERULAR FILTRATION RATE > 60.0 (>42); GLUCOSE, FASTING 99 MG/DL (74-106); POTASSIUM SERUM 4.3 MMOL/L (3.5-5.1); SODIUM LEVEL 142 MMOL/L (136-145); TOTAL PROTEIN 5.8 G/DL (5.7-8.2)
[2022-12-15 17:20] LABS: TOTAL 25(OH) VITAMIN D 43.8 NG/ML (20.0-100.0)
[2022-12-15 17:28] LABS: ERYTHROCYTE SEDIMENTATION RATE 37 mm/hr (0-20)
== END ==
LOC: M SFHCRHEU 14:24
PROVIDERS: ATTEND Internal Medicine
DX: M31.6 Other giant cell arteritis (principal); S22.080S Wedge compression fracture of T11-T12 vertebra, sequela; Z79.899 Other long term (current) drug therapy

== ENCOUNTER → 2023-01-23 | Outpatient (CLI) | payer MEDICARE | LOC: M PLAIMG 12:56 | PROVIDERS: ATTEND Family Medicine | DX: R91.8 Other nonspecific abnormal finding of lung field (principal) ==

== ENCOUNTER → 2023-02-08 | Outpatient (REF) | payer MEDICARE ==
[2023-02-08 13:14] LABS: BASO % 0.2 % (0.0-1.0); HEMOGLOBIN 11.2 g/dl (13.5-17.5); LYMPH # 0.4 10^3/uL (1.5-5.0); LYMPH % 9.2 % (24.0-44.0); MEAN CORPUSCULAR HEMOGLOBIN 35.9 pg (27.0-33.0); MEAN CORPUSCULAR HGB CONC 32.9 g/dl (32.0-36.5); MONO # 0.2 10^3/uL (0.0-0.8); MONO % 4.3 % (2.0-8.0); NEUTROPHILS # 3.6 10^3/uL (1.5-8.5); NEUTROPHILS % 84.9 % (36.0-66.0); PLATELET COUNT, AUTOMATED 116 10^3/uL (150-450); RED BLOOD COUNT 3.12 10^6/uL (4.30-6.10); WHITE BLOOD COUNT 4.2 10^3/uL (4.0-10.0)
[2023-02-08 13:20] LABS: ALBUMIN 3.4 G/DL (3.2-5.2); ALKALINE PHOSPHATASE 64 U/L (46-116); ALT/SGPT 11 U/L (7.0-40); AST/SGOT < 8 U/L (<34); BILIRUBIN,DIRECT 0.2 MG/DL (<0.4); BILIRUBIN,TOTAL 0.6 MG/DL (0.3-1.2); BLOOD UREA NITROGEN 21 MG/DL (9-23); CALCIUM LEVEL 8.7 MG/DL (8.3-10.6); CARBON DIOXIDE LEVEL 29 MMOL/L (20-31); CHLORIDE LEVEL 105 MMOL/L (98-107); CREATININE FOR GFR 1.14 MG/DL (0.70-1.30); GLOMERULAR FILTRATION RATE > 60.0 (>42); GLUCOSE, FASTING 138 MG/DL (74-106); POTASSIUM SERUM 5.2 MMOL/L (3.5-5.1); SODIUM LEVEL 139 MMOL/L (136-145); TOTAL PROTEIN 6.2 G/DL (5.7-8.2)
[2023-02-08 13:53] LABS: ERYTHROCYTE SEDIMENTATION RATE 57 mm/hr (0-20)
== END ==
LOC: M SFHCADAM 10:35
PROVIDERS: ATTEND Internal Medicine
DX: M31.6 Other giant cell arteritis (principal)

== ENCOUNTER → 2023-02-08 | Outpatient (REF) | payer MEDICARE ==
[2023-02-08 15:22] LABS: HEMOGLOBIN 11.2 g/dl (13.5-17.5); RED BLOOD COUNT 3.12 10^6/uL (4.30-6.10); WHITE BLOOD COUNT 4.2 10^3/uL (4.0-10.0)
[2023-02-08 15:23] LABS: BASO % 0.2 % (0.0-1.0); LYMPH % 9.2 % (24.0-44.0); MEAN CORPUSCULAR HEMOGLOBIN 35.9 pg (27.0-33.0); MEAN CORPUSCULAR HGB CONC 32.9 g/dl (32.0-36.5); MONO % 4.3 % (2.0-8.0); NEUTROPHILS # 3.6 10^3/uL (1.5-8.5); NEUTROPHILS % 84.9 % (36.0-66.0); PLATELET COUNT, AUTOMATED 116 10^3/uL (150-450)
[2023-02-08 15:24] LABS: LYMPH # 0.4 10^3/uL (1.5-5.0); MONO # 0.2 10^3/uL (0.0-0.8)
== END ==
LOC: M LABDRWAD 13:01
PROVIDERS: ATTEND Internal Medicine Hematology & Oncology
DX: D61.818 Other pancytopenia (principal); D46.9 Myelodysplastic syndrome, unspecified; D47.2 Monoclonal gammopathy; D75.81 Myelofibrosis

== ENCOUNTER → 2023-03-13 | Outpatient (CLI) | payer MEDICARE ==
[~2023-03-13] VITALS: Ht 170.2 cm; Wt 103.2 kg
[~2023-03-13] MED LIST changes: +ZOLEDRONIC ACID 5 MG in IV 1 EA IV ONE
[2023-03-13 15:25] VITALS: BP 138/78; O2SAT 98
[2023-03-13 16:30] VITALS: BP 144/72; O2SAT 98
== END ==
LOC: M INFU 15:00
PROVIDERS: ATTEND Internal Medicine
DX: S22.080A Wedge compression fracture of T11-T12 vertebra, initial encounter for closed fracture (principal)
CPT/HCPCS: 96365; J3489

== ENCOUNTER → 2023-03-22 | Outpatient (CLI) | payer MEDICARE ==
[~2023-03-22] MED LIST changes: -ZOLEDRONIC ACID 5 MG in IV 1 EA IV ONE
== END ==
LOC: M ADAMS 15:19
PROVIDERS: ATTEND Student in an Organized Health Care Education/Training Program
DX: M85.88 Other specified disorders of bone density and structure, other site (principal); M47.812 Spondylosis without myelopathy or radiculopathy, cervical region

== ENCOUNTER → 2023-04-04 | Outpatient (REF) | payer MEDICARE ==
[2023-04-04 16:58] LABS: APPEARANCE, URINE CLEAR (CLEAR); BACTERIA, URINE AUTO NEGATIVE (NEGATIVE); BILIRUBIN, URINE AUTO NEGATIVE (NEGATIVE); BLOOD, URINE BLOOD NEGATIVE (NEGATIVE); COLOR, URINE YELLOW (YELLOW); GLUCOSE, URINE (UA) AUTO NEGATIVE (NEGATIVE); KETONE, URINE AUTO NEGATIVE (NEGATIVE); LEUKOCYTE ESTERASE, URINE AUTO NEGATIVE (NEGATIVE); MUCUS, URINE SMALL (NEGATIVE); NITRITE, URINE AUTO NEGATIVE (NEGATIVE); PROTEIN, URINE AUTO 1+ mg/dL (NEGATIVE); RBC, URINE AUTO 2 /HPF (0-3); SPECIFIC GRAVITY URINE AUTO 1.023 (1.002-1.035); SQUAMOUS EPITHELIAL CELL UR AU 0 /HPF (0-6); UROBILINOGEN, URINE AUTO 0.2 mg/dL (0.0-2.0); WBC, URINE AUTO 1 /HPF (0-3)
== END ==
LOC: M SFHCADAM 15:59
PROVIDERS: ATTEND Family Medicine
DX: R30.0 Dysuria (principal); M25.50 Pain in unspecified joint

== ENCOUNTER → 2023-04-05 | Outpatient (REF) | payer OTHER ==
[2023-04-05 12:45] LABS: BASO % 0.3 % (0.0-1.0); EOS % 0.3 % (0.0-3.0); HEMATOCRIT 29.8 % (42.0-52.0); LYMPH # 0.4 10^3/uL (1.5-5.0); MEAN CORPUSCULAR HEMOGLOBIN 36.4 pg (27.0-33.0); MEAN CORPUSCULAR HGB CONC 33.6 g/dl (32.0-36.5); MEAN CORPUSCULAR VOLUME 108.4 fl (80.0-96.0); MONO # 0.3 10^3/uL (0.0-0.8); NEUTROPHILS # 2.6 10^3/uL (1.5-8.5); NEUTROPHILS % 77.2 % (36.0-66.0); PLATELET COUNT, AUTOMATED 112 10^3/uL (150-450); RED BLOOD COUNT 2.75 10^6/uL (4.30-6.10); WHITE BLOOD COUNT 3.4 10^3/uL (4.0-10.0)
[2023-04-05 12:46] LABS: BLOOD UREA NITROGEN 16 MG/DL (9-23); CALCIUM LEVEL 8.1 MG/DL (8.3-10.6); CARBON DIOXIDE LEVEL 28 MMOL/L (20-31); CHLORIDE LEVEL 104 MMOL/L (98-107); CREATININE FOR GFR 1.04 MG/DL (0.70-1.30); GLOMERULAR FILTRATION RATE > 60.0 (>42); GLUCOSE, FASTING 115 MG/DL (74-106); SODIUM LEVEL 138 MMOL/L (136-145)
[2023-04-05 13:16] LABS: ERYTHROCYTE SEDIMENTATION RATE 83 mm/hr (0-20)
== END ==
LOC: M SFHCADAM 08:47
PROVIDERS: ATTEND Physician Assistant Medical
DX: M25.50 Pain in unspecified joint (principal); R63.0 Anorexia; M31.6 Other giant cell arteritis

== ENCOUNTER → 2023-05-25 | Outpatient (REF) | payer OTHER | LOC: M SFHCADAM 10:01 | PROVIDERS: ATTEND Internal Medicine | DX: M31.6 Other giant cell arteritis (principal) ==

== ENCOUNTER → 2023-05-30 | Outpatient (REF) | payer OTHER | LOC: M SFHCADAM 14:49 | PROVIDERS: ATTEND Family Medicine | DX: R61 Generalized hyperhidrosis (principal) ==

== ENCOUNTER → 2023-05-31 | Outpatient (CLI) | payer OTHER ==
[2023-05-31 12:01] LABS: BASO % 0.6 % (0.0-1.0); EOS % 0.6 % (0.0-3.0); HEMATOCRIT 27.9 % (42.0-52.0); HEMOGLOBIN 9.1 g/dl (13.5-17.5); LYMPH # 0.3 10^3/uL (1.5-5.0); LYMPH % 15.4 % (24.0-44.0); MEAN CORPUSCULAR HEMOGLOBIN 35.5 pg (27.0-33.0); MEAN CORPUSCULAR HGB CONC 32.6 g/dl (32.0-36.5); MONO # 0.1 10^3/uL (0.0-0.8); MONO % 7.1 % (2.0-8.0); NEUTROPHILS # 1.3 10^3/uL (1.5-8.5); NEUTROPHILS % 75.7 % (36.0-66.0); PLATELET COUNT, AUTOMATED 108 10^3/uL (150-450); RED BLOOD COUNT 2.56 10^6/uL (4.30-6.10); WHITE BLOOD COUNT 1.7 10^3/uL (4.0-10.0)
[2023-05-31 12:23] LABS: ALBUMIN 3.2 G/DL (3.2-5.2); ALKALINE PHOSPHATASE 62 U/L (46-116); ALT/SGPT 18 U/L (7.0-40); AST/SGOT 33 U/L (<34); BILIRUBIN,TOTAL 0.5 MG/DL (0.3-1.2); BLOOD UREA NITROGEN 14 MG/DL (9-23); CARBON DIOXIDE LEVEL 26 MMOL/L (20-31); CHLORIDE LEVEL 105 MMOL/L (98-107); CREATININE FOR GFR 0.91 MG/DL (0.70-1.30); GLOMERULAR FILTRATION RATE > 60.0 (>42); GLUCOSE, FASTING 112 MG/DL (74-106); SODIUM LEVEL 139 MMOL/L (136-145); TOTAL PROTEIN 6.4 G/DL (5.7-8.2)
== END ==
LOC: M LAB 10:25
PROVIDERS: ATTEND Family Medicine
DX: R61 Generalized hyperhidrosis (principal)

== ENCOUNTER → 2023-07-03 | Outpatient (REF) | payer MEDICARE ==
[2023-07-03 17:15] LABS: C REACTIVE PROTEIN QUANTITATIV 2.3 MG/DL (<1.0)
[2023-07-03 17:18] LABS: TOTAL 25(OH) VITAMIN D 39.9 NG/ML (20.0-100.0)
[2023-07-03 17:19] LABS: FOLATE 15.5 NG/ML (>5.4)
== END ==
LOC: M SFHCADAM 13:47
PROVIDERS: ATTEND Physician Assistant
DX: D46.9 Myelodysplastic syndrome, unspecified (principal); Z79.899 Other long term (current) drug therapy

== ENCOUNTER → 2023-07-19 | Outpatient (CLI) | payer MEDICARE | LOC: M ADAMS 10:29 | PROVIDERS: ATTEND Physician Assistant | DX: S20.212A Contusion of left front wall of thorax, initial encounter (principal); Y99.9 Unspecified external cause status; Y92.9 Unspecified place or not applicable; Y93.9 Activity, unspecified; X58.XXXA Exposure to other specified factors, initial encounter ==

== ENCOUNTER → 2023-07-27 | Outpatient (REF) | payer MEDICARE ==
[2023-07-27 16:59] LABS: HEMOGLOBIN 9.2 g/dl (13.5-17.5); LYMPH # 0.2 10^3/uL (1.5-5.0); LYMPH % 4.6 % (24.0-44.0); MEAN CORPUSCULAR HEMOGLOBIN 37.4 pg (27.0-33.0); MEAN CORPUSCULAR HGB CONC 32.9 g/dl (32.0-36.5); MEAN CORPUSCULAR VOLUME 113.8 fl (80.0-96.0); MONO # 0.2 10^3/uL (0.0-0.8); MONO % 4.1 % (2.0-8.0); NEUTROPHILS # 3.5 10^3/uL (1.5-8.5); NEUTROPHILS % 89.5 % (36.0-66.0); PLATELET COUNT, AUTOMATED 106 10^3/uL (150-450); RED BLOOD COUNT 2.46 10^6/uL (4.30-6.10); WHITE BLOOD COUNT 3.9 10^3/uL (4.0-10.0)
[2023-07-27 17:04] LABS: ERYTHROCYTE SEDIMENTATION RATE 46 mm/hr (0-20)
[2023-07-27 17:16] LABS: HEMOGLOBIN A1c 5.7 % (4.0-6.0)
[2023-07-27 17:24] LABS: ALBUMIN 3.5 G/DL (3.2-5.2); ALKALINE PHOSPHATASE 113 U/L (46-116); ALT/SGPT 19 U/L (7.0-40); AST/SGOT < 8 U/L (<34); BILIRUBIN,DIRECT 0.2 MG/DL (<0.4); BILIRUBIN,TOTAL 0.7 MG/DL (0.3-1.2); BLOOD UREA NITROGEN 21 MG/DL (9-23); CALCIUM LEVEL 8.4 MG/DL (8.3-10.6); CARBON DIOXIDE LEVEL 28 MMOL/L (20-31); CHLORIDE LEVEL 100 MMOL/L (98-107); GLOMERULAR FILTRATION RATE > 60.0 (>42); GLUCOSE, FASTING 127 MG/DL (74-106); POTASSIUM SERUM 3.9 MMOL/L (3.5-5.1); SODIUM LEVEL 135 MMOL/L (136-145); TOTAL PROTEIN 6.1 G/DL (5.7-8.2)
[2023-07-27 17:32] LABS: TOTAL 25(OH) VITAMIN D 35.1 NG/ML (20.0-100.0)
[2023-07-27 17:33] LABS: HEPATITIS B SURFACE ANTIBODY NEGATIVE (POSITIVE)
[2023-07-27 18:04] LABS: HEPATITIS C VIRUS ABY INDEX < 0.02 INDEX (<0.8)
== END ==
LOC: M SFHCRHEU 10:49
PROVIDERS: ATTEND Internal Medicine
DX: M31.6 Other giant cell arteritis (principal); Z79.52 Long term (current) use of systemic steroids; M80.00XA Age-related osteoporosis with current pathological fracture, unspecified site, initial encounter for fracture; Z11.59 Encounter for screening for other viral diseases; Z79.899 Other long term (current) drug therapy

== ENCOUNTER → 2023-08-24 | Outpatient (REF) | payer MEDICARE ==
[2023-08-24 17:02] LABS: BASO % 0.2 % (0.0-1.0); HEMATOCRIT 27.8 % (42.0-52.0); HEMOGLOBIN 9.4 g/dl (13.5-17.5); LYMPH # 0.3 10^3/uL (1.5-5.0); LYMPH % 7.2 % (24.0-44.0); MEAN CORPUSCULAR HGB CONC 33.8 g/dl (32.0-36.5); MONO # 0.2 10^3/uL (0.0-0.8); MONO % 3.8 % (2.0-8.0); NEUTROPHILS # 3.9 10^3/uL (1.5-8.5); NEUTROPHILS % 87.4 % (36.0-66.0); PLATELET COUNT, AUTOMATED 116 10^3/uL (150-450); RED BLOOD COUNT 2.35 10^6/uL (4.30-6.10); WHITE BLOOD COUNT 4.4 10^3/uL (4.0-10.0)
[2023-08-24 17:03] LABS: MEAN CORPUSCULAR VOLUME 118.3 fl (80.0-96.0)
[2023-08-24 17:04] LABS: ALBUMIN 3.4 G/DL (3.2-5.2); ALKALINE PHOSPHATASE 63 U/L (46-116); ALT/SGPT 15 U/L (7.0-40); AST/SGOT 12 U/L (<34); BILIRUBIN,DIRECT 0.2 MG/DL (<0.4); BILIRUBIN,TOTAL 0.7 MG/DL (0.3-1.2); BLOOD UREA NITROGEN 16 MG/DL (9-23); CALCIUM LEVEL 9.2 MG/DL (8.3-10.6); CARBON DIOXIDE LEVEL 29 MMOL/L (20-31); CHLORIDE LEVEL 105 MMOL/L (98-107); CREATININE FOR GFR 0.91 MG/DL (0.70-1.30); GLOMERULAR FILTRATION RATE > 60.0 (>42); GLUCOSE, FASTING 139 MG/DL (74-106); POTASSIUM SERUM 5.1 MMOL/L (3.5-5.1); SODIUM LEVEL 139 MMOL/L (136-145); TOTAL PROTEIN 6.5 G/DL (5.7-8.2)
[2023-08-24 17:08] LABS: ERYTHROCYTE SEDIMENTATION RATE 61 mm/hr (0-20)
[2023-08-24 19:00] LABS: PLATELET ESTIMATE DECREASED (NORMAL); POLYCHROMASIA 1+; TEAR DROP CELLS 1+
== END ==
LOC: M SFHCRHEU 12:13
PROVIDERS: ATTEND Internal Medicine
DX: M31.6 Other giant cell arteritis (principal)

== ENCOUNTER → 2023-09-13 | Outpatient (REF) | payer MEDICARE ==
[2023-09-13 17:58] LABS: HEMATOCRIT 27.8 % (42.0-52.0); HEMOGLOBIN 9.3 g/dl (13.5-17.5); LYMPH # 0.5 10^3/uL (1.5-5.0); LYMPH % 12.6 % (24.0-44.0); MEAN CORPUSCULAR HEMOGLOBIN 38.9 pg (27.0-33.0); MEAN CORPUSCULAR HGB CONC 33.5 g/dl (32.0-36.5); MONO # 0.3 10^3/uL (0.0-0.8); MONO % 6.7 % (2.0-8.0); NEUTROPHILS # 3.2 10^3/uL (1.5-8.5); PLATELET COUNT, AUTOMATED 112 10^3/uL (150-450); RED BLOOD COUNT 2.39 10^6/uL (4.30-6.10); WHITE BLOOD COUNT 4.1 10^3/uL (4.0-10.0)
[2023-09-13 18:08] LABS: MEAN CORPUSCULAR VOLUME 116.3 fl (80.0-96.0)
[2023-09-13 18:24] LABS: ALKALINE PHOSPHATASE 58 U/L (46-116); ALT/SGPT 23 U/L (7.0-40); AST/SGOT 10 U/L (<34); BILIRUBIN,TOTAL 0.6 MG/DL (0.3-1.2); BLOOD UREA NITROGEN 28 MG/DL (9-23); CALCIUM LEVEL 9.2 MG/DL (8.3-10.6); CARBON DIOXIDE LEVEL 27 MMOL/L (20-31); CHLORIDE LEVEL 105 MMOL/L (98-107); CHOLESTEROL LEVEL 181 MG/DL (<200); CHOLESTEROL RISK RATIO 3.85 (<5); CREATININE FOR GFR 1.11 MG/DL (0.70-1.30); GLOMERULAR FILTRATION RATE > 60.0 (>42); GLUCOSE, FASTING 130 MG/DL (74-106); LDL CHOLESTEROL 117.6 MG/DL (<100); POTASSIUM SERUM 5.1 MMOL/L (3.5-5.1); SODIUM LEVEL 136 MMOL/L (136-145); TOTAL PROTEIN 6.3 G/DL (5.7-8.2); TRIGLYCERIDES LEVEL 82 MG/DL (<150)
[2023-09-13 18:34] LABS: HEMOGLOBIN A1c 5.8 % (4.0-6.0)
[2023-09-13 19:05] LABS: PLATELET ESTIMATE NORMAL (NORMAL)
== END ==
LOC: M SFHCADAM 14:09
PROVIDERS: ATTEND Family Medicine
DX: M31.6 Other giant cell arteritis (principal); D46.9 Myelodysplastic syndrome, unspecified; R73.03 Prediabetes; I25.10 Atherosclerotic heart disease of native coronary artery without angina pectoris; E78.5 Hyperlipidemia, unspecified

== ENCOUNTER → 2023-10-02 | Outpatient (REF) | payer MEDICARE ==
[2023-10-02 17:36] LABS: BASO % 0.4 % (0.0-1.0); HEMATOCRIT 27.1 % (42.0-52.0); HEMOGLOBIN 8.8 g/dl (13.5-17.5); LYMPH # 0.4 10^3/uL (1.5-5.0); LYMPH % 14.5 % (24.0-44.0); MEAN CORPUSCULAR HEMOGLOBIN 39.1 pg (27.0-33.0); MEAN CORPUSCULAR HGB CONC 32.5 g/dl (32.0-36.5); MONO # 0.2 10^3/uL (0.0-0.8); MONO % 6.5 % (2.0-8.0); NEUTROPHILS # 2.1 10^3/uL (1.5-8.5); NEUTROPHILS % 76.8 % (36.0-66.0); PLATELET COUNT, AUTOMATED 102 10^3/uL (150-450); RED BLOOD COUNT 2.25 10^6/uL (4.30-6.10); WHITE BLOOD COUNT 2.8 10^3/uL (4.0-10.0)
[2023-10-02 17:39] LABS: MEAN CORPUSCULAR VOLUME 120.4 fl (80.0-96.0)
[2023-10-02 17:47] LABS: ERYTHROCYTE SEDIMENTATION RATE 77 mm/hr (0-20)
[2023-10-02 18:11] LABS: PLATELET ESTIMATE DECREASED (NORMAL)
[2023-10-02 18:12] LABS: ALKALINE PHOSPHATASE 64 U/L (46-116); ALT/SGPT 40 U/L (7.0-40); AST/SGOT 14 U/L (<34); BILIRUBIN,DIRECT 0.3 MG/DL (<0.4); BILIRUBIN,TOTAL 0.9 MG/DL (0.3-1.2); BLOOD UREA NITROGEN 16 MG/DL (9-23); CALCIUM LEVEL 8.9 MG/DL (8.3-10.6); CARBON DIOXIDE LEVEL 28 MMOL/L (20-31); CHLORIDE LEVEL 102 MMOL/L (98-107); CREATININE FOR GFR 0.97 MG/DL (0.70-1.30); GLOMERULAR FILTRATION RATE > 60.0 (>42); GLUCOSE, FASTING 158 MG/DL (74-106); POTASSIUM SERUM 4.6 MMOL/L (3.5-5.1); SODIUM LEVEL 138 MMOL/L (136-145)
== END ==
LOC: M SFHCADAM 14:59
PROVIDERS: ATTEND Internal Medicine
DX: M31.6 Other giant cell arteritis (principal)

== ENCOUNTER → 2023-11-09 | Outpatient (REF) | payer MEDICARE ==
[2023-11-09 14:41] LABS: ALBUMIN 3.2 G/DL (3.2-5.2); ALKALINE PHOSPHATASE 66 U/L (46-116); ALT/SGPT 21 U/L (7.0-40); AST/SGOT 13 U/L (<34); BILIRUBIN,DIRECT 0.2 MG/DL (<0.4); BILIRUBIN,TOTAL 0.6 MG/DL (0.3-1.2); BLOOD UREA NITROGEN 18 MG/DL (9-23); CALCIUM LEVEL 8.6 MG/DL (8.3-10.6); CARBON DIOXIDE LEVEL 28 MMOL/L (20-31); CHLORIDE LEVEL 104 MMOL/L (98-107); CREATININE FOR GFR 0.92 MG/DL (0.70-1.30); EOS % 0.3 % (0.0-3.0); GLOMERULAR FILTRATION RATE > 60.0 (>42); GLUCOSE, FASTING 115 MG/DL (74-106); HEMATOCRIT 27.1 % (42.0-52.0); HEMOGLOBIN 8.8 g/dl (13.5-17.5); LYMPH # 0.7 10^3/uL (1.5-5.0); LYMPH % 20.4 % (24.0-44.0); MEAN CORPUSCULAR HEMOGLOBIN 38.4 pg (27.0-33.0); MEAN CORPUSCULAR HGB CONC 32.5 g/dl (32.0-36.5); MONO # 0.3 10^3/uL (0.0-0.8); MONO % 8.8 % (2.0-8.0); NEUTROPHILS # 2.2 10^3/uL (1.5-8.5); NEUTROPHILS % 68.9 % (36.0-66.0); PLATELET COUNT, AUTOMATED 111 10^3/uL (150-450); POTASSIUM SERUM 4.1 MMOL/L (3.5-5.1); RED BLOOD COUNT 2.29 10^6/uL (4.30-6.10); SODIUM LEVEL 140 MMOL/L (136-145); TOTAL PROTEIN 6.1 G/DL (5.7-8.2); WHITE BLOOD COUNT 3.2 10^3/uL (4.0-10.0)
[2023-11-09 14:49] LABS: MEAN CORPUSCULAR VOLUME 118.3 fl (80.0-96.0)
[2023-11-09 14:58] LABS: ERYTHROCYTE SEDIMENTATION RATE 62 mm/hr (0-20)
[2023-11-09 15:25] LABS: HYPOCHROMASIA 1+
[2023-11-09 15:26] LABS: PLATELET ESTIMATE NORMAL (NORMAL)
== END ==
LOC: M SFHCADAM 10:08
PROVIDERS: ATTEND Internal Medicine
DX: M31.6 Other giant cell arteritis (principal)

== ENCOUNTER → 2023-11-22 | Outpatient (REF) | payer MEDICARE ==
[2023-11-22 13:44] LABS: ALBUMIN 3.2 G/DL (3.2-5.2); ALKALINE PHOSPHATASE 72 U/L (46-116); ALT/SGPT 22 U/L (7.0-40); AST/SGOT 11 U/L (<34); BILIRUBIN,DIRECT 0.2 MG/DL (<0.4); BILIRUBIN,TOTAL 0.7 MG/DL (0.3-1.2); BLOOD UREA NITROGEN 19 MG/DL (9-23); CARBON DIOXIDE LEVEL 30 MMOL/L (20-31); CHLORIDE LEVEL 107 MMOL/L (98-107); CREATININE FOR GFR 1.06 MG/DL (0.70-1.30); GLOMERULAR FILTRATION RATE > 60.0 (>42); GLUCOSE, FASTING 127 MG/DL (74-106); POTASSIUM SERUM 4.7 MMOL/L (3.5-5.1); SODIUM LEVEL 142 MMOL/L (136-145); TOTAL PROTEIN 6.2 G/DL (5.7-8.2)
[2023-11-22 13:50] LABS: BASO % 0.3 % (0.0-1.0); EOS % 0.3 % (0.0-3.0); HEMATOCRIT 28.3 % (42.0-52.0); HEMOGLOBIN 9.2 g/dl (13.5-17.5); LYMPH # 0.3 10^3/uL (1.5-5.0); LYMPH % 8.6 % (24.0-44.0); MEAN CORPUSCULAR HEMOGLOBIN 38.5 pg (27.0-33.0); MEAN CORPUSCULAR HGB CONC 32.5 g/dl (32.0-36.5); MONO # 0.3 10^3/uL (0.0-0.8); MONO % 7.5 % (2.0-8.0); NEUTROPHILS # 2.8 10^3/uL (1.5-8.5); NEUTROPHILS % 81.6 % (36.0-66.0); RED BLOOD COUNT 2.39 10^6/uL (4.30-6.10); WHITE BLOOD COUNT 3.5 10^3/uL (4.0-10.0)
[2023-11-22 14:12] LABS: ERYTHROCYTE SEDIMENTATION RATE 57 mm/hr (0-20)
[2023-11-22 14:50] LABS: MEAN CORPUSCULAR VOLUME 118.4 fl (80.0-96.0); PLATELET COUNT, AUTOMATED 94 10^3/uL (150-450)
[2023-11-22 14:57] LABS: PLATELET ESTIMATE DECREASED (NORMAL)
== END ==
LOC: M SFHCADAM 09:39
PROVIDERS: ATTEND Internal Medicine
DX: M31.6 Other giant cell arteritis (principal)

== ENCOUNTER → 2023-12-05 | Outpatient (REF) | payer MEDICARE ==
[2023-12-05 19:09] LABS: ALBUMIN 3.3 G/DL (3.2-5.2); ALKALINE PHOSPHATASE 73 U/L (46-116); ALT/SGPT 23 U/L (7.0-40); AST/SGOT 10 U/L (<34); BILIRUBIN,DIRECT 0.2 MG/DL (<0.4); BILIRUBIN,TOTAL 0.8 MG/DL (0.3-1.2); BLOOD UREA NITROGEN 20 MG/DL (9-23); CALCIUM LEVEL 8.7 MG/DL (8.3-10.6); CARBON DIOXIDE LEVEL 28 MMOL/L (20-31); CHLORIDE LEVEL 104 MMOL/L (98-107); CREATININE FOR GFR 1.06 MG/DL (0.70-1.30); GLOMERULAR FILTRATION RATE > 60.0 (>42); GLUCOSE, FASTING 220 MG/DL (74-106); POTASSIUM SERUM 4.9 MMOL/L (3.5-5.1); SODIUM LEVEL 137 MMOL/L (136-145); TOTAL PROTEIN 6.2 G/DL (5.7-8.2)
[2023-12-05 19:10] LABS: BASO % 0.4 % (0.0-1.0); HEMATOCRIT 28.4 % (42.0-52.0); HEMOGLOBIN 9.3 g/dl (13.5-17.5); LYMPH # 0.3 10^3/uL (1.5-5.0); LYMPH % 9.6 % (24.0-44.0); MEAN CORPUSCULAR HEMOGLOBIN 38.4 pg (27.0-33.0); MEAN CORPUSCULAR HGB CONC 32.7 g/dl (32.0-36.5); MONO # 0.2 10^3/uL (0.0-0.8); MONO % 5.5 % (2.0-8.0); NEUTROPHILS # 2.3 10^3/uL (1.5-8.5); PLATELET COUNT, AUTOMATED 103 10^3/uL (150-450); RED BLOOD COUNT 2.42 10^6/uL (4.30-6.10); WHITE BLOOD COUNT 2.7 10^3/uL (4.0-10.0)
[2023-12-05 19:18] LABS: MEAN CORPUSCULAR VOLUME 117.4 fl (80.0-96.0)
[2023-12-05 20:06] LABS: ERYTHROCYTE SEDIMENTATION RATE 68 mm/hr (0-20)
[2023-12-05 20:14] LABS: PLATELET ESTIMATE NORMAL (NORMAL)
[2023-12-05 20:15] LABS: TEAR DROP CELLS 1+
== END ==
LOC: M SFHCADAM 13:33
PROVIDERS: ATTEND Internal Medicine
DX: M31.6 Other giant cell arteritis (principal)

== ENCOUNTER → 2023-12-20 | Outpatient (REF) | payer MEDICARE ==
[2023-12-20 13:50] LABS: BASO % 0.6 % (0.0-1.0); EOS % 0.6 % (0.0-3.0); HEMATOCRIT 29.5 % (42.0-52.0); HEMOGLOBIN 9.6 g/dl (13.5-17.5); LYMPH # 0.7 10^3/uL (1.5-5.0); LYMPH % 19.1 % (24.0-44.0); MEAN CORPUSCULAR HEMOGLOBIN 37.8 pg (27.0-33.0); MEAN CORPUSCULAR HGB CONC 32.5 g/dl (32.0-36.5); MONO # 0.3 10^3/uL (0.0-0.8); MONO % 8.8 % (2.0-8.0); NEUTROPHILS # 2.4 10^3/uL (1.5-8.5); NEUTROPHILS % 69.4 % (36.0-66.0); PLATELET COUNT, AUTOMATED 116 10^3/uL (150-450); RED BLOOD COUNT 2.54 10^6/uL (4.30-6.10); WHITE BLOOD COUNT 3.4 10^3/uL (4.0-10.0)
[2023-12-20 13:57] LABS: MEAN CORPUSCULAR VOLUME 116.1 fl (80.0-96.0)
[2023-12-20 14:17] LABS: ANISOCYTOSIS 1+; PLATELET ESTIMATE DECREASED (NORMAL); POIKILOCYTOSIS 1+; POLYCHROMASIA 1+
[2023-12-20 14:38] LABS: ERYTHROCYTE SEDIMENTATION RATE 90 mm/hr (0-20)
[2023-12-22 08:26] LABS: BLOOD UREA NITROGEN 25 MG/DL (9-23); CARBON DIOXIDE LEVEL 28 MMOL/L (20-31); CHLORIDE LEVEL 107 MMOL/L (98-107); GLOMERULAR FILTRATION RATE > 60.0 (>42); GLUCOSE, FASTING 112 MG/DL (74-106); POTASSIUM SERUM 4.6 MMOL/L (3.5-5.1); SODIUM LEVEL 139 MMOL/L (136-145)
== END ==
LOC: M SFHCADAM 10:10
PROVIDERS: ATTEND Internal Medicine
DX: M31.6 Other giant cell arteritis (principal)

== ENCOUNTER → 2024-01-03 | Outpatient (REF) | payer MEDICARE ==
[2024-01-03 18:39] LABS: BASO % 0.3 % (0.0-1.0); HEMATOCRIT 29.1 % (42.0-52.0); HEMOGLOBIN 9.3 g/dl (13.5-17.5); LYMPH # 0.3 10^3/uL (1.5-5.0); LYMPH % 8.1 % (24.0-44.0); MEAN CORPUSCULAR HEMOGLOBIN 37.2 pg (27.0-33.0); MONO # 0.2 10^3/uL (0.0-0.8); MONO % 6.4 % (2.0-8.0); NEUTROPHILS # 2.9 10^3/uL (1.5-8.5); PLATELET COUNT, AUTOMATED 101 10^3/uL (150-450); WHITE BLOOD COUNT 3.5 10^3/uL (4.0-10.0)
[2024-01-03 18:43] LABS: MEAN CORPUSCULAR VOLUME 116.4 fl (80.0-96.0)
[2024-01-03 19:13] LABS: PLATELET ESTIMATE DECREASED (NORMAL)
[2024-01-03 19:15] LABS: ALBUMIN 3.4 G/DL (3.2-5.2); ALKALINE PHOSPHATASE 74 U/L (46-116); ALT/SGPT 25 U/L (7.0-40); AST/SGOT 19 U/L (<34); BILIRUBIN,DIRECT 0.2 MG/DL (<0.4); BILIRUBIN,TOTAL 0.5 MG/DL (0.3-1.2); BLOOD UREA NITROGEN 25 MG/DL (9-23); CARBON DIOXIDE LEVEL 26 MMOL/L (20-31); CHLORIDE LEVEL 105 MMOL/L (98-107); CREATININE FOR GFR 1.01 MG/DL (0.70-1.30); GLOMERULAR FILTRATION RATE > 60.0 (>42); GLUCOSE, FASTING 104 MG/DL (74-106); POTASSIUM SERUM 4.3 MMOL/L (3.5-5.1); SODIUM LEVEL 139 MMOL/L (136-145); TOTAL PROTEIN 6.6 G/DL (5.7-8.2)
[2024-01-03 19:24] LABS: ERYTHROCYTE SEDIMENTATION RATE 70 mm/hr (0-20)
== END ==
LOC: M SFHCADAM 11:46
PROVIDERS: ATTEND Internal Medicine
DX: M31.6 Other giant cell arteritis (principal)

== ENCOUNTER → 2024-01-04 | Outpatient (CLI) | payer MEDICARE ==
[~2024-01-04] MED LIST changes: +PROHANCE 279.3MG/ML 15ML VIAL As Ordered ONE; +PROHANCE 279.3MG/ML 5ML VIAL As Ordered ONE
== END ==
LOC: M RAD 13:10
PROVIDERS: ATTEND Internal Medicine Medical Oncology
DX: K86.2 Cyst of pancreas (principal)
CPT/HCPCS: 74183; A9576

== ENCOUNTER → 2024-01-17 | Outpatient (REF) | payer MEDICARE ==
[~2024-01-17] MED LIST changes: -PROHANCE 279.3MG/ML 15ML VIAL As Ordered ONE; -PROHANCE 279.3MG/ML 5ML VIAL As Ordered ONE
[2024-01-17 19:14] LABS: ALBUMIN 3.2 G/DL (3.2-5.2); ALKALINE PHOSPHATASE 70 U/L (46-116); ALT/SGPT 12 U/L (7.0-40); AST/SGOT 10 U/L (<34); BILIRUBIN,DIRECT 0.2 MG/DL (<0.4); BILIRUBIN,TOTAL 0.7 MG/DL (0.3-1.2); BLOOD UREA NITROGEN 16 MG/DL (9-23); CALCIUM LEVEL 8.7 MG/DL (8.3-10.6); CARBON DIOXIDE LEVEL 28 MMOL/L (20-31); CHLORIDE LEVEL 103 MMOL/L (98-107); CREATININE FOR GFR 1.08 MG/DL (0.70-1.30); GLOMERULAR FILTRATION RATE > 60.0 (>42); GLUCOSE, FASTING 113 MG/DL (74-106); SODIUM LEVEL 136 MMOL/L (136-145); TOTAL PROTEIN 6.7 G/DL (5.7-8.2)
[2024-01-17 19:24] LABS: HEMOGLOBIN 8.8 g/dl (13.5-17.5); LYMPH # 0.4 10^3/uL (1.5-5.0); LYMPH % 9.6 % (24.0-44.0); MEAN CORPUSCULAR HEMOGLOBIN 36.1 pg (27.0-33.0); MEAN CORPUSCULAR HGB CONC 31.4 g/dl (32.0-36.5); MONO # 0.2 10^3/uL (0.0-0.8); MONO % 5.9 % (2.0-8.0); NEUTROPHILS # 3.4 10^3/uL (1.5-8.5); PLATELET COUNT, AUTOMATED 113 10^3/uL (150-450); RED BLOOD COUNT 2.44 10^6/uL (4.30-6.10); WHITE BLOOD COUNT 4.1 10^3/uL (4.0-10.0)
[2024-01-17 19:35] LABS: ERYTHROCYTE SEDIMENTATION RATE 57 mm/hr (0-20)
[2024-01-17 19:50] LABS: MEAN CORPUSCULAR VOLUME 114.8 fl (80.0-96.0)
== END ==
LOC: M SFHCADAM 11:59
PROVIDERS: ATTEND Internal Medicine
DX: M31.6 Other giant cell arteritis (principal)

== ENCOUNTER → 2024-02-07 | Outpatient (REF) | payer MEDICARE ==
[2024-02-07 12:47] LABS: EOS % 0.4 % (0.0-3.0); HEMATOCRIT 26.9 % (42.0-52.0); HEMOGLOBIN 8.5 g/dl (13.5-17.5); LYMPH # 0.7 10^3/uL (1.5-5.0); MEAN CORPUSCULAR HGB CONC 31.6 g/dl (32.0-36.5); MONO # 0.2 10^3/uL (0.0-0.8); MONO % 6.2 % (2.0-8.0); NEUTROPHILS # 1.5 10^3/uL (1.5-8.5); NEUTROPHILS % 63.6 % (36.0-66.0); PLATELET COUNT, AUTOMATED 105 10^3/uL (150-450); RED BLOOD COUNT 2.36 10^6/uL (4.30-6.10); WHITE BLOOD COUNT 2.4 10^3/uL (4.0-10.0)
[2024-02-07 13:13] LABS: ERYTHROCYTE SEDIMENTATION RATE 61 mm/hr (0-20)
[2024-02-07 13:17] LABS: ALBUMIN 3.1 G/DL (3.2-5.2); ALKALINE PHOSPHATASE 67 U/L (46-116); ALT/SGPT 12 U/L (7.0-40); AST/SGOT 11 U/L (<34); BILIRUBIN,DIRECT 0.2 MG/DL (<0.4); BILIRUBIN,TOTAL 0.6 MG/DL (0.3-1.2); BLOOD UREA NITROGEN 21 MG/DL (9-23); CALCIUM LEVEL 8.8 MG/DL (8.3-10.6); CARBON DIOXIDE LEVEL 27 MMOL/L (20-31); CHLORIDE LEVEL 105 MMOL/L (98-107); CREATININE FOR GFR 1.19 MG/DL (0.70-1.30); GLOMERULAR FILTRATION RATE > 60.0 (>42); GLUCOSE, FASTING 164 MG/DL (74-106); POTASSIUM SERUM 4.5 MMOL/L (3.5-5.1); SODIUM LEVEL 138 MMOL/L (136-145); TOTAL PROTEIN 6.6 G/DL (5.7-8.2)
== END ==
LOC: M SFHCADAM 08:55
PROVIDERS: ATTEND Internal Medicine
DX: M31.6 Other giant cell arteritis (principal)

== ENCOUNTER → 2024-02-27 | Outpatient (REF) | payer MEDICARE ==
[2024-02-27 15:09] LABS: HEMATOCRIT 26.8 % (42.0-52.0); HEMOGLOBIN 8.6 g/dl (13.5-17.5); MEAN CORPUSCULAR HGB CONC 32.1 g/dl (32.0-36.5); MEAN CORPUSCULAR VOLUME 112.1 fl (80.0-96.0); PLATELET COUNT, AUTOMATED 100 10^3/uL (150-450); RED BLOOD COUNT 2.39 10^6/uL (4.30-6.10)
[2024-02-27 15:48] LABS: URIC ACID 5.7 MG/DL (3.7-9.2)
[2024-02-27 15:52] LABS: ALKALINE PHOSPHATASE 66 U/L (46-116); ALT/SGPT 12 U/L (7.0-40); AST/SGOT < 8 U/L (<34); BILIRUBIN,TOTAL 0.6 MG/DL (0.3-1.2); BLOOD UREA NITROGEN 23 MG/DL (9-23); CALCIUM LEVEL 9.2 MG/DL (8.3-10.6); CARBON DIOXIDE LEVEL 27 MMOL/L (20-31); CHLORIDE LEVEL 106 MMOL/L (98-107); GLOMERULAR FILTRATION RATE > 60.0 (>35); GLUCOSE, FASTING 143 MG/DL (74-106); POTASSIUM SERUM 4.4 MMOL/L (3.5-5.1); SODIUM LEVEL 137 MMOL/L (136-145); TOTAL PROTEIN 6.7 G/DL (5.7-8.2)
== END ==
LOC: M SFHCADAM 10:31
PROVIDERS: ATTEND Family Medicine
DX: M19.90 Unspecified osteoarthritis, unspecified site (principal); Z79.899 Other long term (current) drug therapy

== ENCOUNTER → 2024-04-04 | Outpatient (REF) | payer MEDICARE ==
[2024-04-04 17:54] LABS: BASO % 0.5 % (0.0-1.0); HEMATOCRIT 24.6 % (42.0-52.0); HEMOGLOBIN 7.6 g/dl (13.5-17.5); LYMPH # 0.2 10^3/uL (1.5-5.0); LYMPH % 11.6 % (24.0-44.0); MEAN CORPUSCULAR HEMOGLOBIN 34.5 pg (27.0-33.0); MEAN CORPUSCULAR HGB CONC 30.9 g/dl (32.0-36.5); MEAN CORPUSCULAR VOLUME 111.8 fl (80.0-96.0); MONO # 0.2 10^3/uL (0.0-0.8); MONO % 10.1 % (2.0-8.0); NEUTROPHILS # 1.4 10^3/uL (1.5-8.5); NEUTROPHILS % 75.7 % (36.0-66.0); PLATELET COUNT, AUTOMATED 101 10^3/uL (150-450); WHITE BLOOD COUNT 1.9 10^3/uL (4.0-10.0)
[2024-04-04 18:11] LABS: URIC ACID 5.7 MG/DL (3.7-9.2)
[2024-04-04 18:13] LABS: ALBUMIN 2.9 G/DL (3.2-5.2); ALKALINE PHOSPHATASE 90 U/L (46-116); ALT/SGPT 13 U/L (7.0-40); AST/SGOT 14 U/L (<34); BILIRUBIN,TOTAL 0.5 MG/DL (0.3-1.2); BLOOD UREA NITROGEN 19 MG/DL (9-23); CALCIUM LEVEL 8.9 MG/DL (8.3-10.6); CARBON DIOXIDE LEVEL 26 MMOL/L (20-31); CHLORIDE LEVEL 105 MMOL/L (98-107); CHOLESTEROL LEVEL 180 MG/DL (<200); CHOLESTEROL RISK RATIO 6.92 (<5); CREATININE FOR GFR 1.02 MG/DL (0.70-1.30); GLOMERULAR FILTRATION RATE > 60.0 (>35); GLUCOSE, FASTING 106 MG/DL (74-106); LDL CHOLESTEROL 125.2 MG/DL (<100); POTASSIUM SERUM 4.4 MMOL/L (3.5-5.1); SODIUM LEVEL 136 MMOL/L (136-145); TOTAL PROTEIN 6.4 G/DL (5.7-8.2); TRIGLYCERIDES LEVEL 144 MG/DL (<150)
[2024-04-04 18:15] LABS: FREE T4 1.25 NG/DL (0.89-1.76)
[2024-04-04 18:20] LABS: HEMOGLOBIN A1c 5.5 % (4.0-6.0)
== END ==
LOC: M SFHCADAM 11:37
PROVIDERS: ATTEND Family Medicine
DX: M25.50 Pain in unspecified joint (principal); M31.6 Other giant cell arteritis; D46.9 Myelodysplastic syndrome, unspecified; E78.5 Hyperlipidemia, unspecified; R73.03 Prediabetes

== ENCOUNTER 2024-04-18 10:07 | Inpatient (IN) | payer MEDICARE ==
[~2024-04-18] VITALS: Ht 170.2 cm; Wt 60.1 kg
[2024-04-18 08:06] VITALS: BP 132/74; TEMP 97.5; O2SAT 97
[2024-04-18 10:48] LABS: BASO % 0.4 % (0.0-1.0); EOS % 0.4 % (0.0-3.0); HEMATOCRIT 21.5 % (42.0-52.0); LYMPH # 0.3 10^3/uL (1.5-5.0); LYMPH % 10.9 % (24.0-44.0); MEAN CORPUSCULAR HGB CONC 32.6 g/dl (32.0-36.5); MEAN CORPUSCULAR VOLUME 107.5 fl (80.0-96.0); MONO # 0.4 10^3/uL (0.0-0.8); MONO % 15.2 % (2.0-8.0); NEUTROPHILS # 1.8 10^3/uL (1.5-8.5); NEUTROPHILS % 71.9 % (36.0-66.0); WHITE BLOOD COUNT 2.6 10^3/uL (4.0-10.0)
[2024-04-18 10:56] LABS: ERYTHROCYTE SEDIMENTATION RATE 50 mm/hr (0-20)
[2024-04-18 11:01] LABS: LIPASE 42 U/L (12-53)
[2024-04-18 11:03] LABS: ALBUMIN 2.6 G/DL (3.2-5.2); ALKALINE PHOSPHATASE 77 U/L (40-129); ALT/SGPT 16 U/L (7.0-40); AST/SGOT 16 U/L (<34); BILIRUBIN,DIRECT 0.6 MG/DL (<0.4); BILIRUBIN,TOTAL 1.6 MG/DL (0.3-1.2); BLOOD UREA NITROGEN 24 MG/DL (9-23); CALCIUM LEVEL 8.5 MG/DL (8.3-10.6); CARBON DIOXIDE LEVEL 25 MMOL/L (20-31); CHLORIDE LEVEL 101 MMOL/L (98-107); CREATININE FOR GFR 1.41 MG/DL (0.70-1.30); GLOMERULAR FILTRATION RATE 51.5 (>35); GLUCOSE, FASTING 99 MG/DL (74-106); POTASSIUM SERUM 4.3 MMOL/L (3.5-5.1); SODIUM LEVEL 133 MMOL/L (136-145); TOTAL PROTEIN 6.6 G/DL (5.7-8.2)
[2024-04-18 11:08] LABS: IRON (FE) 19 UG/DL (65-175); PERCENT SATURATION 8.7 % (19.7-50.0); PLATELET COUNT, AUTOMATED 66 10^3/uL (150-450); TOTAL IRON BINDING CAPACITY 219 UG/DL (250-425)
[2024-04-18 11:10] LABS: VITAMIN B12 LEVEL 1532 PG/ML (211-911)
[2024-04-18 11:11] LABS: FERRITIN 384.9 NG/ML (10.5-307.3); FOLATE > 24.00 NG/ML (>5.4)
[2024-04-18] MEDS: MORPHINE 2 MG/ML 1ML VIAL IV PRN (11:29)
[2024-04-18] MEDS: ONDANSETRON 4MG 2ML VIAL IV ONE ×2 (11:30→13:07)
[2024-04-18] MEDS: NS 1,000 ML IV SCH (12:11)
[2024-04-18] MEDS: MORPHINE 4 MG/ML 1ML VIAL IV PRN (12:12)
[2024-04-18] MEDS ORDERED: ISOVUE-370 76% 100ML VIAL As Ordered ONE (12:28)
[2024-04-18] MEDS: PIPERACILLIN/TAZOBACTAM SOD 3.375 GM in DEXTROSE 5% (D5W) ADV/MINI-BAG 50 ML IV ONE (14:03)
[2024-04-18] MEDS ORDERED: PRED1TABL PO (14:47)
[2024-04-18] MEDS ORDERED: D-101000 PO (14:47)
[2024-04-18] MEDS ORDERED: PRED5TA PO (14:47)
[2024-04-18] MEDS ORDERED: PANT40TA29 PO (14:47)
[2024-04-18] MEDS ORDERED: HOME MED LIST COMPLETE! XX SCH (14:50)
[2024-04-18] MEDS: METOCLOPRAMIDE INJ 10MG/2ML VIAL IV ONE (16:11)
[2024-04-18] MEDS ORDERED: PROMETHAZINE 25MG/ML 1ML VIAL IV PRN (18:40)
[2024-04-18] MEDS: PIPERACILLIN/TAZOBACTAM SOD 3.375 GM in DEXTROSE 5% (D5W) ADV/MINI-BAG 50 ML IV SCH (19:44)
[2024-04-18 20:06] VITALS: BP 132/74; TEMP 97.5; O2SAT 97
[2024-04-18 21:09] VITALS: BP 123/64; TEMP 97.5; O2SAT 98
[2024-04-18 21:29] VITALS: BP 120/61; TEMP 97.7; O2SAT 98
[2024-04-18 22:14] VITALS: BP 118/60; TEMP 97.5; O2SAT 98
[2024-04-18 22:50] VITALS: BP 120/62; TEMP 97.7; O2SAT 93
[2024-04-19] VITALS (9 sets, daily range): BP systolic 103–121; BP diastolic 50–66; TEMP 97.5–99.8; O2SAT 93–97
[2024-04-19 05:53] LABS: HEMATOCRIT 22.9 % (42.0-52.0); HEMOGLOBIN 7.6 g/dl (13.5-17.5); MEAN CORPUSCULAR HEMOGLOBIN 34.5 pg (27.0-33.0); MEAN CORPUSCULAR HGB CONC 33.2 g/dl (32.0-36.5); MEAN CORPUSCULAR VOLUME 104.1 fl (80.0-96.0); WHITE BLOOD COUNT 2.7 10^3/uL (4.0-10.0)
[2024-04-19 06:04] LABS: PLATELET COUNT, AUTOMATED 59 10^3/uL (150-450)
[2024-04-19 06:26] LABS: ALBUMIN 2.4 G/DL (3.2-5.2); BILIRUBIN,TOTAL 1.7 MG/DL (0.3-1.2); CALCIUM LEVEL 7.8 MG/DL (8.3-10.6); CREATININE FOR GFR 1.42 MG/DL (0.70-1.30); GLOMERULAR FILTRATION RATE 51.1 (>35); POTASSIUM SERUM 4.1 MMOL/L (3.5-5.1); TOTAL PROTEIN 5.7 G/DL (5.7-8.2)
[2024-04-19] MEDS: MORPHINE 4 MG/ML 1ML VIAL IV PRN (08:27)
[2024-04-19] MEDS: ASPIRIN 81MG CHEW TABLET PO SCH (10:10)
[2024-04-19] MEDS: PANTOPRAZOLE 40MG TAB (PROTONIX) PO SCH (10:10)
[2024-04-19] MEDS: predniSONE 1 MG TAB PO SCH (10:11)
[2024-04-19] MEDS: predniSONE 5 MG TAB PO SCH (10:11)
[2024-04-19] MEDS: LACRILUBE (AKWA TEARS) OPHTH OINT 3.5GM OS SCH (21:00)
[2024-04-20 08:29] LABS: BASO % 0.4 % (0.0-1.0); EOS % 0.4 % (0.0-3.0); HEMATOCRIT 25.4 % (42.0-52.0); HEMOGLOBIN 8.7 g/dl (13.5-17.5); LYMPH # 0.3 10^3/uL (1.5-5.0); MEAN CORPUSCULAR HEMOGLOBIN 34.4 pg (27.0-33.0); MEAN CORPUSCULAR HGB CONC 34.3 g/dl (32.0-36.5); MEAN CORPUSCULAR VOLUME 100.4 fl (80.0-96.0); MONO # 0.3 10^3/uL (0.0-0.8); MONO % 10.1 % (2.0-8.0); NEUTROPHILS # 2.1 10^3/uL (1.5-8.5); RED BLOOD COUNT 2.53 10^6/uL (4.30-6.10); WHITE BLOOD COUNT 2.8 10^3/uL (4.0-10.0)
[2024-04-20 08:30] LABS: PLATELET COUNT, AUTOMATED 58 10^3/uL (150-450)
[2024-04-20 08:54] LABS: ALBUMIN 2.3 G/DL (3.2-5.2); BILIRUBIN,TOTAL 1.4 MG/DL (0.3-1.2); CALCIUM LEVEL 8.1 MG/DL (8.3-10.6); CREATININE FOR GFR 1.26 MG/DL (0.70-1.30); GLOMERULAR FILTRATION RATE 58.6 (>35); POTASSIUM SERUM 3.9 MMOL/L (3.5-5.1)
[2024-04-20 12:00] VITALS: BP 145/65; TEMP 97.7; O2SAT 97
[2024-04-20 20:00] VITALS: BP 136/70; TEMP 97.2; O2SAT 98
[2024-04-21 04:17] VITALS: BP 159/80; TEMP 97.9; O2SAT 98
[2024-04-21] MEDS: ONDANSETRON 4MG ORAL DISINTEGRATING TAB PO PRN (04:26)
[2024-04-21 05:53] LABS: BASO % 0.3 % (0.0-1.0); HEMOGLOBIN 9.4 g/dl (13.5-17.5); LYMPH # 0.3 10^3/uL (1.5-5.0); LYMPH % 9.4 % (24.0-44.0); MEAN CORPUSCULAR HEMOGLOBIN 34.2 pg (27.0-33.0); MEAN CORPUSCULAR HGB CONC 33.6 g/dl (32.0-36.5); MEAN CORPUSCULAR VOLUME 101.8 fl (80.0-96.0); MONO # 0.3 10^3/uL (0.0-0.8); MONO % 8.9 % (2.0-8.0); NEUTROPHILS # 2.8 10^3/uL (1.5-8.5); NEUTROPHILS % 79.1 % (36.0-66.0); RED BLOOD COUNT 2.75 10^6/uL (4.30-6.10); WHITE BLOOD COUNT 3.5 10^3/uL (4.0-10.0)
[2024-04-21 05:54] LABS: PLATELET COUNT, AUTOMATED 62 10^3/uL (150-450)
[2024-04-21 06:22] LABS: C REACTIVE PROTEIN QUANTITATIV 12.8 MG/DL (<1.0)
[2024-04-21 06:24] LABS: ALBUMIN 2.5 G/DL (3.2-5.2); BILIRUBIN,TOTAL 1.1 MG/DL (0.3-1.2); CALCIUM LEVEL 8.7 MG/DL (8.3-10.6); CREATININE FOR GFR 1.3 MG/DL (0.70-1.30); GLOMERULAR FILTRATION RATE 56.5 (>35); TOTAL PROTEIN 6.1 G/DL (5.7-8.2)
[2024-04-21 12:00] VITALS: BP 124/72; TEMP 97.5; O2SAT 96
[2024-04-21 19:59] VITALS: BP 109/51; TEMP 97.7; O2SAT 95
[2024-04-22 04:00] VITALS: BP 105/78; TEMP 97.3; O2SAT 95
[2024-04-22 06:10] LABS: BASO % 0.9 % (0.0-1.0); EOS % 0.5 % (0.0-3.0); HEMATOCRIT 31.9 % (42.0-52.0); HEMOGLOBIN 10.4 g/dl (13.5-17.5); LYMPH # 0.3 10^3/uL (1.5-5.0); LYMPH % 13.2 % (24.0-44.0); MEAN CORPUSCULAR HEMOGLOBIN 33.4 pg (27.0-33.0); MEAN CORPUSCULAR HGB CONC 32.6 g/dl (32.0-36.5); MEAN CORPUSCULAR VOLUME 102.6 fl (80.0-96.0); MONO # 0.2 10^3/uL (0.0-0.8); MONO % 9.1 % (2.0-8.0); NEUTROPHILS # 1.6 10^3/uL (1.5-8.5); NEUTROPHILS % 73.6 % (36.0-66.0); RED BLOOD COUNT 3.11 10^6/uL (4.30-6.10); WHITE BLOOD COUNT 2.2 10^3/uL (4.0-10.0)
[2024-04-22 06:24] LABS: BLOOD UREA NITROGEN 16 MG/DL (9-23); CALCIUM LEVEL 8.7 MG/DL (8.3-10.6); CARBON DIOXIDE LEVEL 25 MMOL/L (20-31); CHLORIDE LEVEL 104 MMOL/L (98-107); CREATININE FOR GFR 1.23 MG/DL (0.70-1.30); GLOMERULAR FILTRATION RATE > 60.0 (>35); GLUCOSE, FASTING 94 MG/DL (74-106); POTASSIUM SERUM 3.9 MMOL/L (3.5-5.1); SODIUM LEVEL 136 MMOL/L (136-145)
[2024-04-22 06:38] LABS: PLATELET COUNT, AUTOMATED 56 10^3/uL (150-450)
[2024-04-22] MEDS: DOCUSATE SODIUM 100MG CAPSULE PO PRN (08:24)
[2024-04-22 12:15] VITALS: BP 128/65; TEMP 97; O2SAT 97
[2024-04-22] MEDS: MIRALAX *UNIT DOSE* 17GM PACKET PO PRN (18:06)
[2024-04-22 20:37] VITALS: BP 122/66; TEMP 97.4; O2SAT 96
[2024-04-22] MEDS: AUGMENTIN 875 MG TAB PO SCH (22:05)
[2024-04-23 04:00] VITALS: BP 129/66; TEMP 98.7; O2SAT 96
[2024-04-23 05:38] LABS: BASO % 0.5 % (0.0-1.0); EOS % 0.5 % (0.0-3.0); HEMOGLOBIN 9.5 g/dl (13.5-17.5); LYMPH # 0.3 10^3/uL (1.5-5.0); MEAN CORPUSCULAR HEMOGLOBIN 34.7 pg (27.0-33.0); MEAN CORPUSCULAR HGB CONC 33.9 g/dl (32.0-36.5); MEAN CORPUSCULAR VOLUME 102.2 fl (80.0-96.0); MONO # 0.2 10^3/uL (0.0-0.8); MONO % 9.6 % (2.0-8.0); NEUTROPHILS # 1.3 10^3/uL (1.5-8.5); NEUTROPHILS % 68.7 % (36.0-66.0); PLATELET COUNT, AUTOMATED 60 10^3/uL (150-450); RED BLOOD COUNT 2.74 10^6/uL (4.30-6.10); WHITE BLOOD COUNT 1.9 10^3/uL (4.0-10.0)
[2024-04-23 06:00] LABS: BLOOD UREA NITROGEN 17 MG/DL (9-23); CALCIUM LEVEL 8.5 MG/DL (8.3-10.6); CARBON DIOXIDE LEVEL 26 MMOL/L (20-31); CHLORIDE LEVEL 104 MMOL/L (98-107); CREATININE FOR GFR 1.12 MG/DL (0.70-1.30); GLOMERULAR FILTRATION RATE > 60.0 (>35); GLUCOSE, FASTING 99 MG/DL (74-106); MAGNESIUM LEVEL 1.6 MG/DL (1.8-2.4); POTASSIUM SERUM 4.1 MMOL/L (3.5-5.1); SODIUM LEVEL 136 MMOL/L (136-145)
[2024-04-23] MEDS: ACETAMINOPHEN 325 MG TAB PO PRN (08:39)
[2024-04-23] MEDS ORDERED: ACET32TAB PO (12:02)
[2024-04-23] MEDS ORDERED: MIRA33506 PO (12:02)
[2024-04-23] MEDS ORDERED: OXYC1CAP2 PO (12:02)
[2024-04-23] MEDS ORDERED: PRED1TABL PO (12:02)
[2024-04-23] MEDS ORDERED: AMOX875T2 PO (12:02)
[2024-04-23] MEDS ORDERED: ONDA-282 PO (12:02)
[2024-04-23] MEDS ORDERED: PRED5TA PO (12:02)
== END 2024-04-23 13:05 | disposition home health service (06) | DRG 392 ==
LOC: EDBD 10:07 → M ED 10:07 → M ED INP 18:34 → M MSPAV 20:06
PROVIDERS: ADMIT Hospitalist; ATTEND Student in an Organized Health Care Education/Training Program
PROC: 30233N1 Transfusion of Nonautologous Red Blood Cells into Peripheral Vein, Percutaneous Approach (ICD-10-PCS; principal; 2024-04-18)
DX: K57.20 Diverticulitis of large intestine with perforation and abscess without bleeding (principal); N17.9 Acute kidney failure, unspecified; D61.818 Other pancytopenia; D46.9 Myelodysplastic syndrome, unspecified; E55.9 Vitamin D deficiency, unspecified; K59.00 Constipation, unspecified; N18.9 Chronic kidney disease, unspecified; M31.6 Other giant cell arteritis; R53.1 Weakness; Z79.82 Long term (current) use of aspirin; Z79.52 Long term (current) use of systemic steroids; Z79.899 Other long term (current) drug therapy; Z87.891 Personal history of nicotine dependence

== ENCOUNTER 2024-04-29 12:37 | Observation (INO) | payer MEDICARE ==
[~2024-04-29] VITALS: Ht 172.7 cm; Wt 85.5 kg
[~2024-04-29 12:37] MED LIST changes: +ACET32TAB PO; +AMOX875T2 PO; +D-101000 PO; +MIRA33506 PO; +ONDA-282 PO; +OXYC1CAP2 PO; +PANT40TA29 PO; +PRED1TABL PO; +PRED5TA PO
[2024-04-29] MEDS: ONDANSETRON 4MG 2ML VIAL IV ONE (14:11)
[2024-04-29] MEDS: fentaNYL 100 MCG/2 ML INJECTION IV PRN ×2 (14:13→16:16)
[2024-04-29] MEDS: NS 1,000 ML IV SCH (14:14)
[2024-04-29 14:20] LABS: HEMATOCRIT 31.5 % (42.0-52.0); HEMOGLOBIN 10.4 g/dl (13.5-17.5); MEAN CORPUSCULAR HEMOGLOBIN 34.3 pg (27.0-33.0); RED BLOOD COUNT 3.03 10^6/uL (4.30-6.10); WHITE BLOOD COUNT 2.7 10^3/uL (4.0-10.0)
[2024-04-29 14:24] LABS: LIPASE 72 U/L (12-53); PLATELET COUNT, AUTOMATED 70 10^3/uL (150-450)
[2024-04-29 14:26] LABS: ALBUMIN 2.7 G/DL (3.2-5.2); ALKALINE PHOSPHATASE 83 U/L (40-129); ALT/SGPT 14 U/L (7.0-40); AST/SGOT 18 U/L (<34); BILIRUBIN,DIRECT 0.2 MG/DL (<0.4); BILIRUBIN,TOTAL 0.7 MG/DL (0.3-1.2); BLOOD UREA NITROGEN 18 MG/DL (9-23); CALCIUM LEVEL 8.9 MG/DL (8.3-10.6); CARBON DIOXIDE LEVEL 25 MMOL/L (20-31); CHLORIDE LEVEL 103 MMOL/L (98-107); CREATININE FOR GFR 1.09 MG/DL (0.70-1.30); GLOMERULAR FILTRATION RATE > 60.0 (>35); GLUCOSE, FASTING 138 MG/DL (74-106); SODIUM LEVEL 135 MMOL/L (136-145); TOTAL PROTEIN 6.9 G/DL (5.7-8.2)
[2024-04-29 15:16] LABS: ATYPICAL LYMPH 1 % (0-5); BASOPHILS 2 % (0-1); EOSINOPHILS 1 % (0-3); LYMPHOCYTES 15 % (16-44); METAMYELOCYTES 1 % (0-0); MONOCYTES 2 % (0-5); MYELOCYTES 2 % (0-0); NEUTROPHILS 73 % (28-66); PLATELET ESTIMATE DECREASED (NORMAL)
[2024-04-29 15:17] LABS: ANISOCYTOSIS 1+
[2024-04-29] MEDS ORDERED: ISOVUE-370 76% 100ML VIAL As Ordered ONE (15:20)
[2024-04-29] MEDS: METOCLOPRAMIDE INJ 10MG/2ML VIAL IV ONE (16:08)
[2024-04-29] MEDS ORDERED: VITA500030 PO (18:07)
[2024-04-29] MEDS ORDERED: AMOX875T2 PO (18:07)
[2024-04-29] MEDS ORDERED: HOME MED LIST COMPLETE! XX SCH (18:10)
[2024-04-29] MEDS ORDERED: ACETAMINOPHEN 325 MG TAB PO PRN (18:45)
[2024-04-29] MEDS ORDERED: oxyCODONE 5MG TAB PO PRN (18:45)
[2024-04-29] MEDS ORDERED: MOM 30ML SUSPENSION UDC PO PRN (18:45)
[2024-04-29 19:32] LABS: C REACTIVE PROTEIN QUANTITATIV 9.1 MG/DL (<1.0)
[2024-04-29 19:41] LABS: PROCALCITONIN 0.35 ng/ml
[2024-04-29 20:28] VITALS: BP 126/70; TEMP 97.3; O2SAT 97
[2024-04-29] MEDS: AUGMENTIN 875 MG TAB PO SCH (20:48)
[2024-04-29] MEDS: DOCUSATE SODIUM 100MG CAPSULE PO SCH (20:49)
[2024-04-29] MEDS: SCOPOLAMINE 1MG TRANSDERMAL PATCH TOP SCH (20:49)
[2024-04-29] MEDS: ONDANSETRON 4MG ORAL DISINTEGRATING TAB PO SCH (20:49)
[2024-04-29] MEDS: LR 1,000 ML IV SCH (20:50)
[2024-04-29] MEDS: oxyCODONE 5MG TAB PO PRN (21:33)
[2024-04-30 04:00] VITALS: BP 156/77; TEMP 97.7; O2SAT 98
[2024-04-30 06:14] LABS: HEMATOCRIT 27.4 % (42.0-52.0); HEMOGLOBIN 8.9 g/dl (13.5-17.5); MEAN CORPUSCULAR HEMOGLOBIN 33.6 pg (27.0-33.0); MEAN CORPUSCULAR HGB CONC 32.5 g/dl (32.0-36.5); MEAN CORPUSCULAR VOLUME 103.4 fl (80.0-96.0); PLATELET COUNT, AUTOMATED 78 10^3/uL (150-450); RED BLOOD COUNT 2.65 10^6/uL (4.30-6.10); WHITE BLOOD COUNT 3.3 10^3/uL (4.0-10.0)
[2024-04-30 06:52] LABS: ALBUMIN 2.5 G/DL (3.2-5.2); ALKALINE PHOSPHATASE 77 U/L (40-129); ALT/SGPT 13 U/L (7.0-40); AST/SGOT 16 U/L (<34); BILIRUBIN,TOTAL 0.7 MG/DL (0.3-1.2); BLOOD UREA NITROGEN 16 MG/DL (9-23); CALCIUM LEVEL 8.4 MG/DL (8.3-10.6); CARBON DIOXIDE LEVEL 26 MMOL/L (20-31); CHLORIDE LEVEL 102 MMOL/L (98-107); CREATININE FOR GFR 1.03 MG/DL (0.70-1.30); GLOMERULAR FILTRATION RATE > 60.0 (>35); GLUCOSE, FASTING 92 MG/DL (74-106); POTASSIUM SERUM 4.1 MMOL/L (3.5-5.1); SODIUM LEVEL 133 MMOL/L (136-145); TOTAL PROTEIN 6.4 G/DL (5.7-8.2)
[2024-04-30 08:41] LABS: MAGNESIUM LEVEL 1.8 MG/DL (1.8-2.4)
[2024-04-30] MEDS: MUPIROCIN 2% OINT 22 GM TUBE TOP SCH (09:00)
[2024-04-30] MEDS: ENOXAPARIN 40MG/0.4ML SYRINGE (J1650 PER 10MG) SC SCH (09:46)
[2024-04-30] MEDS: predniSONE 1 MG TAB PO SCH (09:47)
[2024-04-30] MEDS: PANTOPRAZOLE 40MG TAB (PROTONIX) PO SCH (09:48)
[2024-04-30] MEDS: VITAMIN D 1,000 INTERNATIONAL UNITS TABLET PO SCH (09:48)
[2024-04-30] MEDS: ASPIRIN 81MG CHEW TABLET PO SCH (09:48)
[2024-04-30] MEDS: predniSONE 5 MG TAB PO SCH (09:48)
[2024-04-30 11:19] LABS: IRON (FE) 60 UG/DL (65-175); PERCENT SATURATION 27.5 % (19.7-50.0); TOTAL IRON BINDING CAPACITY 218 UG/DL (250-425)
[2024-04-30 11:22] LABS: FERRITIN 517.4 NG/ML (10.5-307.3); VITAMIN B12 LEVEL 1400 PG/ML (211-911)
[2024-04-30] MEDS: CIPROFLOXACIN 400 MG in IV 1 EA IV SCH (11:24)
[2024-04-30 11:25] LABS: FOLATE 17.57 NG/ML (>5.4)
[2024-04-30] MEDS ORDERED: MECLIZINE 25 MG TABLET PO PRN (11:40)
[2024-04-30] MEDS ORDERED: MORPHINE 2 MG/ML 1ML VIAL IV PRN (11:40)
[2024-04-30 12:00] VITALS: BP 150/78; TEMP 97.9; O2SAT 96
[2024-04-30 12:01] LABS: THYROID STIMULATING HORMONE 5.217 uIU/ML (0.55-4.78)
[2024-04-30] MEDS: METOPROLOL SUCC *XL* 25MG TAB (TopROL *XL*) PO SCH (12:26)
[2024-04-30] MEDS: LR 1,000 ML IV SCH (12:35)
[2024-04-30] MEDS ORDERED: ONDANSETRON 4MG 2ML VIAL IV PRN (13:00)
[2024-04-30] MEDS: oxyCODONE 5MG TAB PO PRN (14:28)
[2024-04-30] MEDS: metroNIDAZOLE (FLAGYL) 500MG TABLET PO SCH (14:29)
[2024-04-30 20:00] VITALS: BP 148/80; TEMP 97.5; O2SAT 96
[2024-05-01 04:00] VITALS: BP 161/82; TEMP 98.1; O2SAT 94
[2024-05-01 06:31] LABS: EOS % 0.4 % (0.0-3.0); HEMATOCRIT 24.5 % (42.0-52.0); LYMPH # 0.4 10^3/uL (1.5-5.0); LYMPH % 18.4 % (24.0-44.0); MEAN CORPUSCULAR HEMOGLOBIN 34.5 pg (27.0-33.0); MEAN CORPUSCULAR HGB CONC 32.7 g/dl (32.0-36.5); MEAN CORPUSCULAR VOLUME 105.6 fl (80.0-96.0); MONO # 0.3 10^3/uL (0.0-0.8); MONO % 11.7 % (2.0-8.0); NEUTROPHILS # 1.5 10^3/uL (1.5-8.5); NEUTROPHILS % 66.4 % (36.0-66.0); RED BLOOD COUNT 2.32 10^6/uL (4.30-6.10); WHITE BLOOD COUNT 2.2 10^3/uL (4.0-10.0)
[2024-05-01 06:53] LABS: BLOOD UREA NITROGEN 13 MG/DL (9-23); CALCIUM LEVEL 8.3 MG/DL (8.3-10.6); CARBON DIOXIDE LEVEL 28 MMOL/L (20-31); CHLORIDE LEVEL 102 MMOL/L (98-107); GLOMERULAR FILTRATION RATE > 60.0 (>35); GLUCOSE, FASTING 83 MG/DL (74-106); SODIUM LEVEL 134 MMOL/L (136-145)
[2024-05-01 06:57] LABS: PLATELET COUNT, AUTOMATED 59 10^3/uL (150-450)
[2024-05-01] MEDS: PANTOPRAZOLE 40MG VIAL IV SCH (08:18)
[2024-05-01 08:20] VITALS: BP 116/59
[2024-05-01] MEDS: METOPROLOL TART 25 MG TABLET PO SCH (08:20)
[2024-05-01 12:00] VITALS: BP 112/53; TEMP 98.1; O2SAT 96
[2024-05-01] MEDS ORDERED: ONDA-282 PO (12:44)
[2024-05-01] MEDS ORDERED: OXYC1TAB23 PO (12:44)
[2024-05-01] MEDS ORDERED: METO1TAB87 PO (12:44)
[2024-05-01] MEDS ORDERED: CIPRHCOTIC OTIC (12:44)
[2024-05-01] MEDS ORDERED: METR-265 PO (12:44)
[2024-05-01] MEDS ORDERED: LEVO1TAB40 PO (12:44)
[2024-05-01] MEDS ORDERED: CIPROFLOXACIN 500MG TABLET PO SCH (18:00)
== END 2024-05-01 14:06 | disposition home health service (06) ==
LOC: M ED 12:37 → M ED INP 12:38 → M MSPAV 20:28
PROVIDERS: ADMIT Student in an Organized Health Care Education/Training Program; ATTEND Internal Medicine
DX: R10.9 Unspecified abdominal pain (principal); K57.32 Diverticulitis of large intestine without perforation or abscess without bleeding; R11.2 Nausea with vomiting, unspecified; I49.8 Other specified cardiac arrhythmias; I49.1 Atrial premature depolarization; D46.9 Myelodysplastic syndrome, unspecified; D69.6 Thrombocytopenia, unspecified; R50.9 Fever, unspecified; L01.03 Bullous impetigo; H60.91 Unspecified otitis externa, right ear; I25.10 Atherosclerotic heart disease of native coronary artery without angina pectoris; K21.9 Gastro-esophageal reflux disease without esophagitis; M31.6 Other giant cell arteritis; M80.08XA Age-related osteoporosis with current pathological fracture, vertebra(e), initial encounter for fracture; M54.9 Dorsalgia, unspecified; N43.2 Other hydrocele; K86.2 Cyst of pancreas; E78.5 Hyperlipidemia, unspecified; R91.1 Solitary pulmonary nodule; R73.03 Prediabetes; R16.1 Splenomegaly, not elsewhere classified; Z90.89 Acquired absence of other organs; Z98.49 Cataract extraction status, unspecified eye; Z98.61 Coronary angioplasty status; Z86.0100 Personal history of colon polyps, unspecified; Z98.890 Other specified postprocedural states; Z88.8 Allergy status to other drugs, medicaments and biological substances; Z79.899 Other long term (current) drug therapy; Z79.82 Long term (current) use of aspirin; Z79.52 Long term (current) use of systemic steroids; Z79.2 Long term (current) use of antibiotics
CPT/HCPCS: 36415; 74177; 80048; 80053; 80076; 81001; 82607; 82728; 82746; 83550; 83605; 83690; 83735; 84145; 84443; 84466; 85025; 85027; 85049; 85055; 85652; 86140; 87040; 93005; 93041; 93306; 96361; 96365; 96366; 96372; 96375; 96376; 97116; 97161; 99285; G0378; J0744; J1650; J2405; J2470; J2765; J3010; J7512; Q9967

== ENCOUNTER → 2024-05-01 | Outpatient (CLI) | payer MEDICARE ==
[~2024-05-01] MED LIST changes: +CIPRHCOTIC OTIC; +LEVO1TAB40 PO; +METO1TAB87 PO; +METR-265 PO; +OXYC-517 PO; +OXYC1TAB23 PO; +PROB250C PO; +VITA500030 PO
== END ==
LOC: M EKG 14:17
PROVIDERS: ATTEND Internal Medicine
DX: I48.0 Paroxysmal atrial fibrillation (principal)

== ENCOUNTER 2024-05-04 22:20 | Inpatient (IN) | payer MEDICARE ==
[~2024-05-04] VITALS: Ht 170.2 cm; Wt 96.4 kg
[~2024-05-04 22:20] MED LIST changes: -OXYC-517 PO; -PROB250C PO
[2024-05-04] MEDS: METOCLOPRAMIDE INJ 10MG/2ML VIAL IV ONE (23:47)
[2024-05-04] MEDS: NS 1,000 ML IV ONE (23:48)
[2024-05-04] MEDS: MORPHINE 4 MG/ML 1ML VIAL IV ONE (23:48)
[2024-05-05] VITALS (12 sets, daily range): BP systolic 96–144; BP diastolic 49–75; TEMP 97.6–101.8; O2SAT 84–99
[2024-05-05 00:42] LABS: BASO % 0.4 % (0.0-1.0); HEMATOCRIT 26.3 % (42.0-52.0); HEMOGLOBIN 8.9 g/dl (13.5-17.5); LYMPH # 0.3 10^3/uL (1.5-5.0); LYMPH % 11.9 % (24.0-44.0); MEAN CORPUSCULAR HEMOGLOBIN 34.4 pg (27.0-33.0); MEAN CORPUSCULAR HGB CONC 33.8 g/dl (32.0-36.5); MEAN CORPUSCULAR VOLUME 101.5 fl (80.0-96.0); MONO # 0.3 10^3/uL (0.0-0.8); MONO % 12.8 % (2.0-8.0); NEUTROPHILS # 1.8 10^3/uL (1.5-8.5); NEUTROPHILS % 73.3 % (36.0-66.0); PLATELET COUNT, AUTOMATED 66 10^3/uL (150-450); RED BLOOD COUNT 2.59 10^6/uL (4.30-6.10); WHITE BLOOD COUNT 2.4 10^3/uL (4.0-10.0)
[2024-05-05 00:53] LABS: LIPASE 44 U/L (12-53)
[2024-05-05 00:55] LABS: ALBUMIN 2.5 G/DL (3.2-5.2); ALKALINE PHOSPHATASE 68 U/L (40-129); ALT/SGPT 15 U/L (7.0-40); AST/SGOT 20 U/L (<34); BILIRUBIN,DIRECT 0.3 MG/DL (<0.4); BILIRUBIN,TOTAL 0.8 MG/DL (0.3-1.2); BLOOD UREA NITROGEN 15 MG/DL (9-23); CALCIUM LEVEL 8.6 MG/DL (8.3-10.6); CARBON DIOXIDE LEVEL 26 MMOL/L (20-31); CHLORIDE LEVEL 101 MMOL/L (98-107); CREATININE FOR GFR 0.92 MG/DL (0.70-1.30); GLOMERULAR FILTRATION RATE > 60.0 (>35); GLUCOSE, FASTING 142 MG/DL (74-106); MAGNESIUM LEVEL 1.7 MG/DL (1.8-2.4); POTASSIUM SERUM 4.1 MMOL/L (3.5-5.1); SODIUM LEVEL 134 MMOL/L (136-145)
[2024-05-05] MEDS: ONDANSETRON 4MG 2ML VIAL IV ONE (02:43)
[2024-05-05] MEDS: PIPERACILLIN/TAZOBACTAM SOD 4.5 GM in DEXTROSE 5% (D5W) ADV/MINI-BAG 50 ML IV ONE (02:44)
[2024-05-05] MEDS: LevoFLOXacin IV 750 MG in IV 1 EA IV ONE (03:10)
[2024-05-05] MEDS ORDERED: METR-265 PO (03:59)
[2024-05-05] MEDS ORDERED: PROB250C PO (03:59)
[2024-05-05] MEDS ORDERED: LEVO1TAB40 PO (03:59)
[2024-05-05] MEDS ORDERED: OXYC-517 PO (03:59)
[2024-05-05] MEDS ORDERED: ONDA-282 PO (03:59)
[2024-05-05] MEDS ORDERED: HOME MED LIST COMPLETE! XX SCH (04:00)
[2024-05-05 04:25] LABS: APPEARANCE, URINE HAZY (CLEAR); BACTERIA, URINE AUTO NEGATIVE (NEGATIVE); BILIRUBIN, URINE AUTO NEGATIVE (NEGATIVE); BLOOD, URINE BLOOD 1+ (NEGATIVE); COLOR, URINE AMBER (YELLOW); GLUCOSE, URINE (UA) AUTO NEGATIVE (NEGATIVE); KETONE, URINE AUTO NEGATIVE (NEGATIVE); LEUKOCYTE ESTERASE, URINE AUTO TRACE (NEGATIVE); MUCUS, URINE SMALL (NEGATIVE); NITRITE, URINE AUTO NEGATIVE (NEGATIVE); PROTEIN, URINE AUTO 1+ mg/dL (NEGATIVE); RBC, URINE AUTO 2 /HPF (0-3); SPECIFIC GRAVITY URINE AUTO 1.027 (1.002-1.035); SQUAMOUS EPITHELIAL CELL UR AU 0 /HPF (0-6); WBC, URINE AUTO 2 /HPF (0-3)
[2024-05-05] MEDS: NS 1,000 ML IV ONE ×2 (04:54→06:47)
[2024-05-05] MEDS ORDERED: ONDANSETRON 4MG 2ML VIAL IV PRN (05:20)
[2024-05-05] MEDS ORDERED: FAMOTIDINE IV BAG 20 MG in IV 1 EA IV SCH (06:00)
[2024-05-05 06:09] LABS: AMYLASE 55 U/L (30-118)
[2024-05-05 06:16] LABS: PROCALCITONIN 0.38 ng/ml
[2024-05-05] MEDS: HYDROCORTISONE 100MG/2ML VIAL IV SCH ×2 (06:57→11:47)
[2024-05-05] MEDS: MORPHINE 4 MG/ML 1ML VIAL IV ONE (06:58)
[2024-05-05] MEDS: FAMOTIDINE IV BAG 20 MG in IV 1 EA IV SCH (06:59)
[2024-05-05] MEDS: LR 1,000 ML IV SCH (07:58)
[2024-05-05] MEDS: PIPERACILLIN/TAZOBACTAM SOD 3.375 GM in DEXTROSE 5% (D5W) ADV/MINI-BAG 50 ML IV SCH (07:58)
[2024-05-05] MEDS: METOCLOPRAMIDE INJ 10MG/2ML VIAL IV PRN (08:21)
[2024-05-05] MEDS: ACETAMINOPHEN *IV* 1,000 MG in IV 1 EA IV PRN (08:40)
[2024-05-05 09:18] LABS: HEMATOCRIT 30.2 % (42.0-52.0); HEMOGLOBIN 9.6 g/dl (13.5-17.5); MEAN CORPUSCULAR HEMOGLOBIN 33.8 pg (27.0-33.0); MEAN CORPUSCULAR HGB CONC 31.8 g/dl (32.0-36.5); MEAN CORPUSCULAR VOLUME 106.3 fl (80.0-96.0); RED BLOOD COUNT 2.84 10^6/uL (4.30-6.10); WHITE BLOOD COUNT 2.2 10^3/uL (4.0-10.0)
[2024-05-05 09:20] LABS: PLATELET COUNT, AUTOMATED 54 10^3/uL (150-450)
[2024-05-05 09:40] LABS: ANISOCYTOSIS 2+; LYMPHOCYTES 13 % (16-44); MONOCYTES 1 % (0-5); NEUTROPHILS 86 % (28-66); PLATELET ESTIMATE DECREASED (NORMAL); POIKILOCYTOSIS 1+
[2024-05-05] MEDS: SCOPOLAMINE 1MG TRANSDERMAL PATCH TOP SCH (10:00)
[2024-05-06] VITALS (7 sets, daily range): BP systolic 88–104; BP diastolic 44–64; TEMP 96.7–98.4; O2SAT 94–100
[2024-05-06 06:41] LABS: ALBUMIN 2.1 G/DL (3.2-5.2); BILIRUBIN,TOTAL 0.8 MG/DL (0.3-1.2); CALCIUM LEVEL 7.6 MG/DL (8.3-10.6); CREATININE FOR GFR 1.55 MG/DL (0.70-1.30); GLOMERULAR FILTRATION RATE 46.2 (>35); POTASSIUM SERUM 4.2 MMOL/L (3.5-5.1); PROCALCITONIN 41.59 ng/ml; TOTAL PROTEIN 5.2 G/DL (5.7-8.2)
[2024-05-06] MEDS: NS 1,000 ML IV ONE (11:08)
[2024-05-06] MEDS: HYDROCORTISONE 100MG/2ML VIAL IV SCH (18:28)
[2024-05-07] VITALS (13 sets, daily range): BP systolic 123–141; BP diastolic 60–68; TEMP 97.3–97.9; O2SAT 95–99
[2024-05-07 06:49] LABS: CALCIUM LEVEL 7.2 MG/DL (8.3-10.6); CREATININE FOR GFR 1.44 MG/DL (0.70-1.30); GLOMERULAR FILTRATION RATE 50.2 (>35); POTASSIUM SERUM 3.7 MMOL/L (3.5-5.1)
[2024-05-07 08:10] LABS: EOS % 0.6 % (0.0-3.0); HEMATOCRIT 21.1 % (42.0-52.0); LYMPH # 0.2 10^3/uL (1.5-5.0); LYMPH % 10.1 % (24.0-44.0); MEAN CORPUSCULAR HEMOGLOBIN 33.2 pg (27.0-33.0); MEAN CORPUSCULAR HGB CONC 32.2 g/dl (32.0-36.5); MEAN CORPUSCULAR VOLUME 102.9 fl (80.0-96.0); MONO # 0.1 10^3/uL (0.0-0.8); NEUTROPHILS # 1.2 10^3/uL (1.5-8.5); NEUTROPHILS % 76.1 % (36.0-66.0); RED BLOOD COUNT 2.05 10^6/uL (4.30-6.10); WHITE BLOOD COUNT 1.6 10^3/uL (4.0-10.0)
[2024-05-07 08:17] LABS: HEMOGLOBIN 6.8 g/dl (13.5-17.5); PLATELET COUNT, AUTOMATED 32 10^3/uL (150-450)
[2024-05-07] MEDS: ASPIRIN 81MG CHEW TABLET PO SCH (10:34)
[2024-05-07 10:54] LABS: PROCALCITONIN 22.92 ng/ml
[2024-05-07] MEDS: SUCRALFATE SUSP 1GM/10ML UD PO SCH (17:30)
[2024-05-07] MEDS: PANTOPRAZOLE 40MG VIAL IV SCH (18:17)
[2024-05-07] MEDS: FILGRASTIM 480 MCG/0.8 ML SYRINGE **SC ADMINISTRATION ONLY SC SCH (18:46)
[2024-05-07 19:14] LABS: HEMATOCRIT 27.3 % (42.0-52.0); MEAN CORPUSCULAR HEMOGLOBIN 33.1 pg (27.0-33.0); MEAN CORPUSCULAR HGB CONC 34.1 g/dl (32.0-36.5); MEAN CORPUSCULAR VOLUME 97.2 fl (80.0-96.0); RED BLOOD COUNT 2.81 10^6/uL (4.30-6.10); WHITE BLOOD COUNT 2.1 10^3/uL (4.0-10.0)
[2024-05-07 19:15] LABS: HEMOGLOBIN 9.3 g/dl (13.5-17.5); PLATELET COUNT, AUTOMATED 35 10^3/uL (150-450)
[2024-05-08 06:08] VITALS: BP 136/66; TEMP 97.5; O2SAT 97
[2024-05-08 06:19] LABS: HEMOGLOBIN 9.4 g/dl (13.5-17.5); MEAN CORPUSCULAR HEMOGLOBIN 32.6 pg (27.0-33.0); MEAN CORPUSCULAR HGB CONC 33.6 g/dl (32.0-36.5); MEAN CORPUSCULAR VOLUME 97.2 fl (80.0-96.0); RED BLOOD COUNT 2.88 10^6/uL (4.30-6.10); WHITE BLOOD COUNT 17.9 10^3/uL (4.0-10.0)
[2024-05-08 06:27] LABS: PLATELET COUNT, AUTOMATED 38 10^3/uL (150-450)
[2024-05-08 06:38] LABS: ALKALINE PHOSPHATASE 49 U/L (40-129); ALT/SGPT 9 U/L (7.0-40); AST/SGOT 18 U/L (<34); BILIRUBIN,TOTAL 0.8 MG/DL (0.3-1.2); BLOOD UREA NITROGEN 26 MG/DL (9-23); CARBON DIOXIDE LEVEL 23 MMOL/L (20-31); CHLORIDE LEVEL 106 MMOL/L (98-107); CREATININE FOR GFR 1.18 MG/DL (0.70-1.30); GLOMERULAR FILTRATION RATE > 60.0 (>35); GLUCOSE, FASTING 97 MG/DL (74-106); POTASSIUM SERUM 3.6 MMOL/L (3.5-5.1); SODIUM LEVEL 138 MMOL/L (136-145); TOTAL PROTEIN 5.1 G/DL (5.7-8.2)
[2024-05-08 07:29] LABS: LYMPHOCYTES 2 % (16-44); METAMYELOCYTES 2 % (0-0); MONOCYTES 1 % (0-5); NEUTROPHILS 81 % (28-66)
[2024-05-08 07:30] LABS: ANISOCYTOSIS 2+; PLATELET ESTIMATE DECREASED (NORMAL)
[2024-05-08 08:00] VITALS: BP 130/53; TEMP 95.3; O2SAT 96
[2024-05-08] MEDS: methylPREDNISolone 40MG 1ML VIAL IV SCH (08:09)
[2024-05-08] MEDS: DOCUSATE SODIUM 100MG CAPSULE PO SCH (09:48)
[2024-05-08] MEDS: SENNA 8.6 MG TAB (SENOKOT) PO SCH (09:49)
[2024-05-08 12:00] VITALS: BP 141/67; TEMP 97.5; O2SAT 96
[2024-05-08 16:00] VITALS: BP 144/67; TEMP 97; O2SAT 96
[2024-05-08] MEDS: AMINO AC/ELECTROLYTE/DEX/CALC 1,000 ML IV SCH (17:49)
[2024-05-08] MEDS: FAT EMULSION IV 250 ML IV ONE (17:49)
[2024-05-08] MEDS: SODIUM CHLORIDE 0.9% INJ 10 ML SYR IV SCH (17:50)
[2024-05-08] MEDS: INSULIN LISPRO (NovoLOG) PER UNIT SC SCH (17:51)
[2024-05-08 20:59] VITALS: BP 142/66; TEMP 97.5; O2SAT 96
[2024-05-09] MEDS: MORPHINE 2 MG/ML 1ML VIAL IV PRN (04:13)
[2024-05-09 06:34] VITALS: BP 141/66; TEMP 97.9; O2SAT 95
[2024-05-09 07:05] LABS: EOS # 0.1 10^3/uL (0.0-0.5); EOS % 0.5 % (0.0-3.0); HEMATOCRIT 26.9 % (42.0-52.0); HEMOGLOBIN 9.2 g/dl (13.5-17.5); LYMPH # 0.7 10^3/uL (1.5-5.0); LYMPH % 7.8 % (24.0-44.0); MEAN CORPUSCULAR HEMOGLOBIN 33.8 pg (27.0-33.0); MEAN CORPUSCULAR HGB CONC 34.2 g/dl (32.0-36.5); MEAN CORPUSCULAR VOLUME 98.9 fl (80.0-96.0); MONO # 0.2 10^3/uL (0.0-0.8); MONO % 1.9 % (2.0-8.0); NEUTROPHILS # 8.1 10^3/uL (1.5-8.5); RED BLOOD COUNT 2.72 10^6/uL (4.30-6.10); WHITE BLOOD COUNT 9.1 10^3/uL (4.0-10.0)
[2024-05-09 07:26] LABS: PROCALCITONIN 5.74 ng/ml
[2024-05-09 07:27] LABS: ALKALINE PHOSPHATASE 52 U/L (40-129); ALT/SGPT 12 U/L (7.0-40); AST/SGOT 18 U/L (<34); BILIRUBIN,TOTAL 0.5 MG/DL (0.3-1.2); BLOOD UREA NITROGEN 21 MG/DL (9-23); CALCIUM LEVEL 7.6 MG/DL (8.3-10.6); CARBON DIOXIDE LEVEL 24 MMOL/L (20-31); CHLORIDE LEVEL 109 MMOL/L (98-107); CREATININE FOR GFR 1.01 MG/DL (0.70-1.30); GLOMERULAR FILTRATION RATE > 60.0 (>35); GLUCOSE, FASTING 119 MG/DL (74-106); POTASSIUM SERUM 3.1 MMOL/L (3.5-5.1); SODIUM LEVEL 139 MMOL/L (136-145); TOTAL PROTEIN 4.8 G/DL (5.7-8.2)
[2024-05-09 07:39] LABS: PLATELET COUNT, AUTOMATED 36 10^3/uL (150-450)
[2024-05-09 08:00] VITALS: BP 112/58; TEMP 97.3; O2SAT 96
[2024-05-09] MEDS ORDERED: PERCOCET 5MG/325MG TAB PO PRN (08:30)
[2024-05-09] MEDS ORDERED: MOM 30ML SUSPENSION UDC PO PRN (08:35)
[2024-05-09] MEDS: POTASSIUM CHLORIDE 10% LIQ 20MEQ/15ML UDC PO SCH (09:13)
[2024-05-09] MEDS: POLYVINYL ALCOHOL OPHTH SOLN 15ML (LIQUITEARS) OU PRN (11:14)
[2024-05-09 12:00] VITALS: BP 145/75; TEMP 97.5; O2SAT 96
[2024-05-09] MEDS: PERCOCET 5MG/325MG TAB PO PRN (15:51)
[2024-05-09 16:00] VITALS: BP 122/50; TEMP 97.7; O2SAT 97
[2024-05-09] MEDS: FAT EMULSION IV 250 ML IV ONE (17:26)
[2024-05-09] MEDS: AMINO AC/ELECTROLYTE/DEX/CALC 2,000 ML IV SCH (17:27)
[2024-05-09] MEDS: INSULIN LISPRO (NovoLOG) PER UNIT SC SCH (18:00)
[2024-05-09 20:00] VITALS: BP 139/70; TEMP 97.7; O2SAT 97
[2024-05-09] MEDS: RAMELTEON 8 MG TAB (ROZEREM) PO PRN (21:07)
[2024-05-10 06:27] LABS: EOS % 0.6 % (0.0-3.0); HEMATOCRIT 29.1 % (42.0-52.0); HEMOGLOBIN 9.7 g/dl (13.5-17.5); LYMPH # 0.7 10^3/uL (1.5-5.0); LYMPH % 20.4 % (24.0-44.0); MEAN CORPUSCULAR HEMOGLOBIN 33.1 pg (27.0-33.0); MEAN CORPUSCULAR HGB CONC 33.3 g/dl (32.0-36.5); MEAN CORPUSCULAR VOLUME 99.3 fl (80.0-96.0); MONO # 0.2 10^3/uL (0.0-0.8); NEUTROPHILS # 2.6 10^3/uL (1.5-8.5); NEUTROPHILS % 71.8 % (36.0-66.0); RED BLOOD COUNT 2.93 10^6/uL (4.30-6.10); WHITE BLOOD COUNT 3.6 10^3/uL (4.0-10.0)
[2024-05-10 06:31] LABS: PLATELET COUNT, AUTOMATED 37 10^3/uL (150-450)
[2024-05-10 06:59] LABS: ALBUMIN 2.1 G/DL (3.2-5.2); ALKALINE PHOSPHATASE 56 U/L (40-129); ALT/SGPT 9 U/L (7.0-40); AST/SGOT 12 U/L (<34); BILIRUBIN,TOTAL 0.5 MG/DL (0.3-1.2); BLOOD UREA NITROGEN 18 MG/DL (9-23); CALCIUM LEVEL 7.9 MG/DL (8.3-10.6); CARBON DIOXIDE LEVEL 23 MMOL/L (20-31); CHLORIDE LEVEL 107 MMOL/L (98-107); CREATININE FOR GFR 0.96 MG/DL (0.70-1.30); GLOMERULAR FILTRATION RATE > 60.0 (>35); GLUCOSE, FASTING 94 MG/DL (74-106); POTASSIUM SERUM 3.5 MMOL/L (3.5-5.1); SODIUM LEVEL 139 MMOL/L (136-145); TOTAL PROTEIN 5.4 G/DL (5.7-8.2)
[2024-05-10 08:00] VITALS: BP 149/67; TEMP 98.2; O2SAT 95
[2024-05-10 09:30] VITALS: BP 133/67; TEMP 97.5; O2SAT 94
[2024-05-10 12:00] VITALS: BP 125/66; TEMP 97.9; O2SAT 95
[2024-05-10 16:00] VITALS: BP 128/64; TEMP 97.9; O2SAT 95
[2024-05-10] MEDS: FAT EMULSION IV 250 ML IV ONE (17:55)
[2024-05-10] MEDS: MULTIVITAMIN -ADULT INJECTION 10 ML, ZINC/COPPER/MANGANESE/SELENIUM 1 ML in AMINO AC/EL... IV SCH (17:56)
[2024-05-10] MEDS: INSULIN LISPRO (NovoLOG) PER UNIT SC SCH (18:00)
[2024-05-10 20:21] VITALS: BP 130/64; TEMP 97.9; O2SAT 95
[2024-05-11 06:10] VITALS: BP 148/68; TEMP 97.9; O2SAT 96
[2024-05-11 06:29] LABS: EOS % 0.3 % (0.0-3.0); HEMATOCRIT 21.5 % (42.0-52.0); LYMPH # 0.8 10^3/uL (1.5-5.0); LYMPH % 24.1 % (24.0-44.0); MEAN CORPUSCULAR HGB CONC 33.5 g/dl (32.0-36.5); MEAN CORPUSCULAR VOLUME 98.6 fl (80.0-96.0); MONO # 0.3 10^3/uL (0.0-0.8); MONO % 8.2 % (2.0-8.0); NEUTROPHILS # 2.1 10^3/uL (1.5-8.5); NEUTROPHILS % 65.5 % (36.0-66.0); RED BLOOD COUNT 2.18 10^6/uL (4.30-6.10); WHITE BLOOD COUNT 3.2 10^3/uL (4.0-10.0)
[2024-05-11 06:35] LABS: PLATELET COUNT, AUTOMATED 36 10^3/uL (150-450)
[2024-05-11 06:36] LABS: HEMOGLOBIN 7.2 g/dl (13.5-17.5)
[2024-05-11 06:48] LABS: ALBUMIN 1.9 G/DL (3.2-5.2); ALKALINE PHOSPHATASE 53 U/L (40-129); ALT/SGPT 11 U/L (7.0-40); AST/SGOT 13 U/L (<34); BILIRUBIN,TOTAL 0.5 MG/DL (0.3-1.2); BLOOD UREA NITROGEN 16 MG/DL (9-23); CALCIUM LEVEL 7.6 MG/DL (8.3-10.6); CARBON DIOXIDE LEVEL 23 MMOL/L (20-31); CHLORIDE LEVEL 110 MMOL/L (98-107); CREATININE FOR GFR 0.83 MG/DL (0.70-1.30); GLOMERULAR FILTRATION RATE > 60.0 (>35); GLUCOSE, FASTING 114 MG/DL (74-106); POTASSIUM SERUM 3.1 MMOL/L (3.5-5.1); SODIUM LEVEL 138 MMOL/L (136-145); TOTAL PROTEIN 4.8 G/DL (5.7-8.2)
[2024-05-11 08:00] VITALS: BP 147/68; TEMP 97.5; O2SAT 96
[2024-05-11 09:44] LABS: HEMATOCRIT 26.7 % (42.0-52.0); HEMOGLOBIN 8.7 g/dl (13.5-17.5); MEAN CORPUSCULAR HEMOGLOBIN 32.3 pg (27.0-33.0); MEAN CORPUSCULAR HGB CONC 32.6 g/dl (32.0-36.5); MEAN CORPUSCULAR VOLUME 99.3 fl (80.0-96.0); RED BLOOD COUNT 2.69 10^6/uL (4.30-6.10); WHITE BLOOD COUNT 2.3 10^3/uL (4.0-10.0)
[2024-05-11 09:46] LABS: PLATELET COUNT, AUTOMATED 34 10^3/uL (150-450)
[2024-05-11] MEDS: FILGRASTIM 480 MCG/0.8 ML SYRINGE **SC ADMINISTRATION ONLY SC SCH (10:12)
[2024-05-11] MEDS: POTASSIUM CHLORIDE 10MEQ SR TABLET PO SCH (11:18)
[2024-05-11] MEDS: FUROSEMIDE 20MG/2ML VIAL IV ONE (11:19)
[2024-05-11 12:00] VITALS: BP 145/68; TEMP 97.7; O2SAT 96
[2024-05-11] MEDS: KCL 10MEQ/100ML SWI (KRUN) 10 MEQ in IV 1 EA IV SCH (14:42)
[2024-05-11 16:00] VITALS: BP 130/63; TEMP 97.5; O2SAT 96
[2024-05-11] MEDS: AMINO AC/ELECTROLYTE/DEX/CALC 1,000 ML IV SCH (17:46)
[2024-05-11] MEDS: FAT EMULSION IV 250 ML IV ONE (17:46)
[2024-05-11] MEDS: INSULIN LISPRO (NovoLOG) PER UNIT SC SCH (18:10)
[2024-05-11 19:54] VITALS: BP 144/76; TEMP 98.1; O2SAT 95
[2024-05-12 03:00] VITALS: BP 149/69; TEMP 97.7; O2SAT 97
[2024-05-12] MEDS: AMINO AC/ELECTROLYTE/DEX/CALC 2,000 ML IV SCH (04:02)
[2024-05-12 08:00] VITALS: BP 138/68; TEMP 98.1; O2SAT 96
[2024-05-12 09:22] LABS: HEMOGLOBIN 8.3 g/dl (13.5-17.5); MEAN CORPUSCULAR HEMOGLOBIN 32.7 pg (27.0-33.0); MEAN CORPUSCULAR HGB CONC 31.9 g/dl (32.0-36.5); MEAN CORPUSCULAR VOLUME 102.4 fl (80.0-96.0); RED BLOOD COUNT 2.54 10^6/uL (4.30-6.10); WHITE BLOOD COUNT 9.2 10^3/uL (4.0-10.0)
[2024-05-12 09:24] LABS: PLATELET COUNT, AUTOMATED 41 10^3/uL (150-450)
[2024-05-12 09:51] LABS: LYMPHOCYTES 5 % (16-44); METAMYELOCYTES 4 % (0-0); MONOCYTES 5 % (0-5); NEUTROPHILS 76 % (28-66)
[2024-05-12 09:52] LABS: ANISOCYTOSIS 1+; TEAR DROP CELLS 2+
[2024-05-12 09:53] LABS: OVALOCYTES 1+
[2024-05-12 09:56] LABS: PLATELET ESTIMATE MARKED DECREASE (NORMAL); TOXIC GRANULATION 1+; TOXIC VACUOLATION 1+
[2024-05-12 10:08] LABS: ALBUMIN 1.9 G/DL (3.2-5.2); ALKALINE PHOSPHATASE 63 U/L (40-129); ALT/SGPT 11 U/L (7.0-40); AST/SGOT 15 U/L (<34); BILIRUBIN,TOTAL 0.5 MG/DL (0.3-1.2); BLOOD UREA NITROGEN 20 MG/DL (9-23); CALCIUM LEVEL 7.5 MG/DL (8.3-10.6); CARBON DIOXIDE LEVEL 23 MMOL/L (20-31); CHLORIDE LEVEL 102 MMOL/L (98-107); CREATININE FOR GFR 0.84 MG/DL (0.70-1.30); GLOMERULAR FILTRATION RATE > 60.0 (>35); GLUCOSE, FASTING 78 MG/DL (74-106); POTASSIUM SERUM 6.9 MMOL/L (3.5-5.1); SODIUM LEVEL 130 MMOL/L (136-145); TOTAL PROTEIN 4.9 G/DL (5.7-8.2)
[2024-05-12 11:53] LABS: BLOOD UREA NITROGEN 23 MG/DL (9-23); CARBON DIOXIDE LEVEL 24 MMOL/L (20-31); CHLORIDE LEVEL 106 MMOL/L (98-107); CREATININE FOR GFR 0.75 MG/DL (0.70-1.30); GLOMERULAR FILTRATION RATE > 60.0 (>35); GLUCOSE, FASTING 112 MG/DL (74-106); POTASSIUM SERUM 4.2 MMOL/L (3.5-5.1); SODIUM LEVEL 139 MMOL/L (136-145)
[2024-05-12 12:00] VITALS: BP 142/69; TEMP 97.7; O2SAT 92
[2024-05-12] MEDS: FAT EMULSION IV 250 ML IV ONE (17:18)
[2024-05-12] MEDS: AMINO AC/ELECTROLYTE/DEX/CALC 1,000 ML IV SCH (17:18)
[2024-05-12 20:00] VITALS: BP 118/58; TEMP 97.9; O2SAT 96
[2024-05-12 22:30] VITALS: TEMP 97.1
[2024-05-12] MEDS: INSULIN LISPRO (NovoLOG) PER UNIT SC SCH (23:05)
[2024-05-12] MEDS: SODIUM CHLORIDE 0.9% INJ 10 ML SYR IV PRN (23:06)
[2024-05-12] MEDS: TAMSULOSIN 0.4 MG CAP PO SCH (23:38)
[2024-05-13 05:08] VITALS: BP 143/66; TEMP 97.2; O2SAT 96
[2024-05-13 06:01] LABS: BASO % 0.2 % (0.0-1.0); EOS % 0.1 % (0.0-3.0); HEMATOCRIT 27.6 % (42.0-52.0); HEMOGLOBIN 9.1 g/dl (13.5-17.5); LYMPH # 1.1 10^3/uL (1.5-5.0); LYMPH % 5.2 % (24.0-44.0); MONO # 0.8 10^3/uL (0.0-0.8); MONO % 3.8 % (2.0-8.0); NEUTROPHILS # 18.8 10^3/uL (1.5-8.5); NEUTROPHILS % 88.1 % (36.0-66.0); RED BLOOD COUNT 2.76 10^6/uL (4.30-6.10); WHITE BLOOD COUNT 21.4 10^3/uL (4.0-10.0)
[2024-05-13 06:03] LABS: PLATELET COUNT, AUTOMATED 53 10^3/uL (150-450)
[2024-05-13 06:37] LABS: PROCALCITONIN 0.72 ng/ml
[2024-05-13 06:42] LABS: ALBUMIN 2.1 G/DL (3.2-5.2); ALKALINE PHOSPHATASE 92 U/L (40-129); ALT/SGPT 13 U/L (7.0-40); AST/SGOT 12 U/L (<34); BILIRUBIN,TOTAL 0.5 MG/DL (0.3-1.2); BLOOD UREA NITROGEN 26 MG/DL (9-23); CALCIUM LEVEL 7.9 MG/DL (8.3-10.6); CARBON DIOXIDE LEVEL 24 MMOL/L (20-31); CHLORIDE LEVEL 105 MMOL/L (98-107); CREATININE FOR GFR 0.74 MG/DL (0.70-1.30); GLOMERULAR FILTRATION RATE > 60.0 (>35); GLUCOSE, FASTING 107 MG/DL (74-106); POTASSIUM SERUM 3.6 MMOL/L (3.5-5.1); SODIUM LEVEL 137 MMOL/L (136-145); TOTAL PROTEIN 5.3 G/DL (5.7-8.2)
[2024-05-13] MEDS: AMINO AC/ELECTROLYTE/DEX/CALC 2,000 ML IV SCH (06:49)
[2024-05-13 08:00] VITALS: BP 159/75; TEMP 98.9; O2SAT 96
[2024-05-13] MEDS ORDERED: ISOVUE-370 76% 100ML VIAL As Ordered ONE (09:05)
[2024-05-13 14:00] VITALS: BP 156/75; TEMP 100.2; O2SAT 98
[2024-05-13] MEDS: MULTIVITAMIN -ADULT INJECTION 10 ML, ZINC/COPPER/MANGANESE/SELENIUM 1 ML in AMINO AC/EL... IV SCH (17:45)
[2024-05-13] MEDS: FAT EMULSION IV 250 ML IV ONE (17:46)
[2024-05-13 18:00] VITALS: TEMP 96.8
[2024-05-13] MEDS: INSULIN LISPRO (NovoLOG) PER UNIT SC SCH (18:34)
[2024-05-13 21:23] VITALS: BP 141/58; TEMP 97.9; O2SAT 97
[2024-05-13] MEDS: ONDANSETRON 4MG 2ML VIAL IV ONE (22:08)
[2024-05-14 00:04] VITALS: BP 140/69; TEMP 98.4; O2SAT 96
[2024-05-14 03:11] VITALS: BP 138/71; TEMP 98.1; O2SAT 96
[2024-05-14 07:01] LABS: ALBUMIN 1.3 G/DL (3.2-5.2); ALKALINE PHOSPHATASE 65 U/L (40-129); ALT/SGPT 10 U/L (7.0-40); AST/SGOT 8 U/L (<34); BILIRUBIN,TOTAL 0.4 MG/DL (0.3-1.2); BLOOD UREA NITROGEN 14 MG/DL (9-23); CALCIUM LEVEL 5.4 MG/DL (8.3-10.6); CARBON DIOXIDE LEVEL 18 MMOL/L (20-31); CHLORIDE LEVEL 118 MMOL/L (98-107); CREATININE FOR GFR 0.53 MG/DL (0.70-1.30); GLOMERULAR FILTRATION RATE > 60.0 (>35); GLUCOSE, FASTING 78 MG/DL (74-106); POTASSIUM SERUM 2.6 MMOL/L (3.5-5.1); SODIUM LEVEL 143 MMOL/L (136-145); TOTAL PROTEIN 3.5 G/DL (5.7-8.2)
[2024-05-14 07:34] LABS: IONIZED CALCIUM 4.5 MG/DL (4.5-5.3)
[2024-05-14 07:38] LABS: HEMATOCRIT 27.5 % (42.0-52.0); MEAN CORPUSCULAR HEMOGLOBIN 32.3 pg (27.0-33.0); MEAN CORPUSCULAR HGB CONC 32.7 g/dl (32.0-36.5); MEAN CORPUSCULAR VOLUME 98.6 fl (80.0-96.0); RED BLOOD COUNT 2.79 10^6/uL (4.30-6.10); WHITE BLOOD COUNT 10.4 10^3/uL (4.0-10.0)
[2024-05-14 07:40] LABS: PLATELET COUNT, AUTOMATED 54 10^3/uL (150-450)
[2024-05-14 08:15] LABS: BLOOD UREA NITROGEN 18 MG/DL (9-23); CALCIUM LEVEL 8.2 MG/DL (8.3-10.6); CARBON DIOXIDE LEVEL 24 MMOL/L (20-31); CHLORIDE LEVEL 106 MMOL/L (98-107); CREATININE FOR GFR 0.72 MG/DL (0.70-1.30); GLOMERULAR FILTRATION RATE > 60.0 (>35); GLUCOSE, FASTING 136 MG/DL (74-106); POTASSIUM SERUM 3.6 MMOL/L (3.5-5.1); SODIUM LEVEL 136 MMOL/L (136-145)
[2024-05-14 08:25] VITALS: BP 140/71; TEMP 98.4; O2SAT 95
[2024-05-14] MEDS: METOCLOPRAMIDE INJ 10MG/2ML VIAL IV SCH (11:02)
[2024-05-14 12:00] VITALS: BP 142/72; TEMP 98.1; O2SAT 96
[2024-05-14] MEDS: MEGESTROL 40MG TAB PO SCH (13:17)
[2024-05-14] MEDS: FERRIC CARBOXYMALTOSE INJ 750 MG, VIAL MATE ADAPTER 1 EACH in NS 100 ML IV ONE (13:18)
[2024-05-14 15:41] VITALS: BP 139/73; TEMP 97.9; O2SAT 98
[2024-05-14] MEDS: AMINO AC/ELECTROLYTE/DEX/CALC 2,000 ML IV SCH (17:40)
[2024-05-14] MEDS: FAT EMULSION IV 250 ML IV ONE (17:41)
[2024-05-14] MEDS: INSULIN LISPRO (NovoLOG) PER UNIT SC SCH (17:55)
[2024-05-14 21:00] VITALS: BP 139/73; TEMP 98.1; O2SAT 96
[2024-05-15 05:17] VITALS: BP 151/73; TEMP 98.1; O2SAT 97
[2024-05-15 05:50] LABS: BASO % 0.2 % (0.0-1.0); EOS % 0.2 % (0.0-3.0); HEMATOCRIT 27.7 % (42.0-52.0); LYMPH # 0.7 10^3/uL (1.5-5.0); LYMPH % 12.1 % (24.0-44.0); MEAN CORPUSCULAR HEMOGLOBIN 32.5 pg (27.0-33.0); MEAN CORPUSCULAR HGB CONC 32.5 g/dl (32.0-36.5); MONO # 0.3 10^3/uL (0.0-0.8); MONO % 4.9 % (2.0-8.0); NEUTROPHILS # 4.7 10^3/uL (1.5-8.5); NEUTROPHILS % 77.7 % (36.0-66.0); RED BLOOD COUNT 2.77 10^6/uL (4.30-6.10)
[2024-05-15 05:51] LABS: PLATELET COUNT, AUTOMATED 62 10^3/uL (150-450)
[2024-05-15 06:16] LABS: ALBUMIN 2.2 G/DL (3.2-5.2); ALKALINE PHOSPHATASE 114 U/L (40-129); ALT/SGPT 19 U/L (7.0-40); AST/SGOT 16 U/L (<34); BILIRUBIN,TOTAL 0.8 MG/DL (0.3-1.2); BLOOD UREA NITROGEN 23 MG/DL (9-23); CALCIUM LEVEL 8.8 MG/DL (8.3-10.6); CARBON DIOXIDE LEVEL 25 MMOL/L (20-31); CHLORIDE LEVEL 105 MMOL/L (98-107); CREATININE FOR GFR 0.71 MG/DL (0.70-1.30); GLOMERULAR FILTRATION RATE > 60.0 (>35); GLUCOSE, FASTING 101 MG/DL (74-106); POTASSIUM SERUM 3.9 MMOL/L (3.5-5.1); SODIUM LEVEL 136 MMOL/L (136-145); TOTAL PROTEIN 5.5 G/DL (5.7-8.2)
[2024-05-15 08:00] VITALS: BP 155/72; TEMP 98.1; O2SAT 100
[2024-05-15] MEDS ORDERED: E-Z-PAQUE 96% w/w SUSP 176GM BTL As Ordered ONE (09:23)
[2024-05-15] MEDS ORDERED: E-Z-GAS II EFFERVESCENT PACKET (SODIUM BICARB./CITRIC ACID/SIMETHICONE) As Ordered ONE (09:24)
[2024-05-15] MEDS ORDERED: E-Z-HD 98% w/w 340GM SUSP BTL As Ordered ONE (09:24)
[2024-05-15] MEDS: ONDANSETRON 4MG 2ML VIAL IV PRN (09:34)
[2024-05-15] MEDS ORDERED: LORazepam 2 MG/ML 1ML VIAL IV STA (10:02)
[2024-05-15 13:00] VITALS: BP 142/60; TEMP 98.1; O2SAT 96
[2024-05-15 16:00] VITALS: BP 154/74; TEMP 98.1; O2SAT 97
[2024-05-15] MEDS: INSULIN LISPRO (NovoLOG) PER UNIT SC SCH (18:20)
[2024-05-15] MEDS: MULTIVITAMIN -ADULT INJECTION 10 ML, ZINC/COPPER/MANGANESE/SELENIUM 1 ML in AMINO AC/EL... IV SCH (18:21)
[2024-05-15] MEDS: FAT EMULSION IV 250 ML IV ONE (18:21)
[2024-05-15 19:55] VITALS: BP 150/72; TEMP 97.7; O2SAT 96
[2024-05-15] MEDS: HYDROCORTISONE 100MG/2ML VIAL IV SCH (20:32)
[2024-05-16] MEDS ORDERED: DEXTROMETHORPHAN 60MG/10ML SUSP 90ML BTL(DELSYM) PO PRN (01:35)
[2024-05-16] MEDS ORDERED: ALBUTEROL SULFATE 2.5MG/0.5ML INH NEB SOLN NEB PRN (01:35)
[2024-05-16 04:21] VITALS: BP 143/70; TEMP 97.7; O2SAT 97
[2024-05-16 04:50] LABS: HEMATOCRIT 25.6 % (42.0-52.0); HEMOGLOBIN 8.5 g/dl (13.5-17.5); MEAN CORPUSCULAR HEMOGLOBIN 32.7 pg (27.0-33.0); MEAN CORPUSCULAR HGB CONC 33.2 g/dl (32.0-36.5); MEAN CORPUSCULAR VOLUME 98.5 fl (80.0-96.0); PLATELET COUNT, AUTOMATED 60 10^3/uL (150-450); WHITE BLOOD COUNT 3.5 10^3/uL (4.0-10.0)
[2024-05-16 05:19] LABS: LYMPHOCYTES 13 % (16-44); MONOCYTES 6 % (0-5); NEUTROPHILS 78 % (28-66); PLATELET ESTIMATE DECREASED (NORMAL)
[2024-05-16 05:20] LABS: OVALOCYTES 1+
[2024-05-16 05:21] LABS: TEAR DROP CELLS 1+
[2024-05-16 05:26] LABS: ALBUMIN 2.1 G/DL (3.2-5.2); ALKALINE PHOSPHATASE 106 U/L (40-129); ALT/SGPT 17 U/L (7.0-40); AST/SGOT 11 U/L (<34); BILIRUBIN,TOTAL 0.7 MG/DL (0.3-1.2); BLOOD UREA NITROGEN 25 MG/DL (9-23); CALCIUM LEVEL 8.6 MG/DL (8.3-10.6); CARBON DIOXIDE LEVEL 24 MMOL/L (20-31); CHLORIDE LEVEL 107 MMOL/L (98-107); GLOMERULAR FILTRATION RATE > 60.0 (>35); GLUCOSE, FASTING 128 MG/DL (74-106); SODIUM LEVEL 135 MMOL/L (136-145); TOTAL PROTEIN 5.3 G/DL (5.7-8.2)
[2024-05-16 08:00] VITALS: BP 143/70; TEMP 97.7; O2SAT 96
[2024-05-16 12:00] VITALS: BP 143/72; TEMP 98.8; O2SAT 97
[2024-05-16 14:39] LABS: PROCALCITONIN 0.33 ng/ml
[2024-05-16 18:00] VITALS: BP 141/72; TEMP 97.7; O2SAT 97
[2024-05-16] MEDS ORDERED: FAT EMULSION IV 250 ML IV ONE (18:00)
[2024-05-16] MEDS ORDERED: INSULIN LISPRO (NovoLOG) PER UNIT SC SCH (18:00)
[2024-05-16] MEDS ORDERED: AMINO AC/ELECTROLYTE/DEX/CALC 2,000 ML IV SCH (18:00)
[2024-05-16 20:20] VITALS: BP 147/75; TEMP 97.9; O2SAT 96
[2024-05-17 00:28] VITALS: TEMP 97.6
[2024-05-17 05:40] VITALS: BP 140/73; TEMP 98.1; O2SAT 96
[2024-05-17 06:01] LABS: BASO % 0.4 % (0.0-1.0); HEMATOCRIT 24.8 % (42.0-52.0); HEMOGLOBIN 8.3 g/dl (13.5-17.5); LYMPH # 0.6 10^3/uL (1.5-5.0); LYMPH % 23.9 % (24.0-44.0); MEAN CORPUSCULAR HEMOGLOBIN 33.3 pg (27.0-33.0); MEAN CORPUSCULAR HGB CONC 33.5 g/dl (32.0-36.5); MEAN CORPUSCULAR VOLUME 99.6 fl (80.0-96.0); MONO # 0.2 10^3/uL (0.0-0.8); MONO % 7.7 % (2.0-8.0); NEUTROPHILS # 1.5 10^3/uL (1.5-8.5); NEUTROPHILS % 62.9 % (36.0-66.0); RED BLOOD COUNT 2.49 10^6/uL (4.30-6.10); WHITE BLOOD COUNT 2.3 10^3/uL (4.0-10.0)
[2024-05-17 06:05] LABS: PLATELET COUNT, AUTOMATED 60 10^3/uL (150-450)
[2024-05-17 06:22] LABS: BLOOD UREA NITROGEN 24 MG/DL (9-23); CALCIUM LEVEL 8.5 MG/DL (8.3-10.6); CARBON DIOXIDE LEVEL 23 MMOL/L (20-31); CHLORIDE LEVEL 105 MMOL/L (98-107); CREATININE FOR GFR 0.87 MG/DL (0.70-1.30); GLOMERULAR FILTRATION RATE > 60.0 (>35); GLUCOSE, FASTING 84 MG/DL (74-106); POTASSIUM SERUM 4.1 MMOL/L (3.5-5.1); SODIUM LEVEL 135 MMOL/L (136-145)
[2024-05-17 08:00] VITALS: BP 143/74; TEMP 97.9; O2SAT 94
[2024-05-17] MEDS ORDERED: ONDANSETRON 4MG TAB PO PRN (09:40)
[2024-05-17] MEDS: FILGRASTIM 480 MCG/0.8 ML SYRINGE **SC ADMINISTRATION ONLY SC SCH (11:29)
[2024-05-17 12:00] VITALS: BP 116/80; TEMP 97.9; O2SAT 98
[2024-05-17] MEDS: METOCLOPRAMIDE 10MG TAB PO SCH (12:25)
[2024-05-17 18:00] VITALS: BP 122/60; TEMP 98.1; O2SAT 96
[2024-05-17 20:49] VITALS: BP 127/64; TEMP 98.8; O2SAT 97
[2024-05-17] MEDS: ONDANSETRON 4MG ORAL DISINTEGRATING TAB PO PRN (22:26)
[2024-05-17] MEDS: METOCLOPRAMIDE INJ 10MG/2ML VIAL IV PRN (22:37)
[2024-05-18] MEDS: diphenhydrAMINE 50MG/ML VIAL IV ONE (00:01)
[2024-05-18 05:16] VITALS: BP 128/64; TEMP 97.9; O2SAT 95
[2024-05-18 05:16] LABS: BASO % 0.2 % (0.0-1.0); HEMATOCRIT 25.5 % (42.0-52.0); HEMOGLOBIN 8.5 g/dl (13.5-17.5); LYMPH # 1.1 10^3/uL (1.5-5.0); LYMPH % 6.7 % (24.0-44.0); MEAN CORPUSCULAR HEMOGLOBIN 33.5 pg (27.0-33.0); MEAN CORPUSCULAR HGB CONC 33.3 g/dl (32.0-36.5); MEAN CORPUSCULAR VOLUME 100.4 fl (80.0-96.0); MONO # 0.7 10^3/uL (0.0-0.8); MONO % 4.3 % (2.0-8.0); NEUTROPHILS # 14.3 10^3/uL (1.5-8.5); NEUTROPHILS % 88.1 % (36.0-66.0); RED BLOOD COUNT 2.54 10^6/uL (4.30-6.10); WHITE BLOOD COUNT 16.2 10^3/uL (4.0-10.0)
[2024-05-18 05:24] LABS: PLATELET COUNT, AUTOMATED 70 10^3/uL (150-450)
[2024-05-18 05:42] LABS: ALBUMIN 2.2 G/DL (3.2-5.2); ALKALINE PHOSPHATASE 112 U/L (40-129); ALT/SGPT 24 U/L (7.0-40); AST/SGOT 17 U/L (<34); BLOOD UREA NITROGEN 20 MG/DL (9-23); CALCIUM LEVEL 8.8 MG/DL (8.3-10.6); CARBON DIOXIDE LEVEL 21 MMOL/L (20-31); CHLORIDE LEVEL 106 MMOL/L (98-107); CREATININE FOR GFR 0.83 MG/DL (0.70-1.30); GLOMERULAR FILTRATION RATE > 60.0 (>35); GLUCOSE, FASTING 90 MG/DL (74-106); POTASSIUM SERUM 4.2 MMOL/L (3.5-5.1); SODIUM LEVEL 135 MMOL/L (136-145); TOTAL PROTEIN 5.4 G/DL (5.7-8.2)
[2024-05-18] MEDS ORDERED: ONDA-282 PO (10:04)
[2024-05-18] MEDS ORDERED: SUCR1TA PO (10:04)
[2024-05-18] MEDS ORDERED: FLOM0.4C39 PO (10:04)
[2024-05-18] MEDS ORDERED: COLA100C5 PO (10:04)
[2024-05-18] MEDS ORDERED: SENO8.6T5 PO (10:04)
[2024-05-18] MEDS ORDERED: METO10TA2 PO (10:04)
[2024-05-18] MEDS: ONDANSETRON 4MG 2ML VIAL IV PRN (10:58)
[2024-05-18] MEDS ORDERED: PROMETHAZINE 25MG/ML 1ML VIAL IM ONE (12:30)
[2024-05-18] MEDS ORDERED: HYDR-4468 PO (18:43)
[2024-05-21 19:38] LABS: URINE STREP PNEUMONIAE ANTIGEN NOT DETECTED (NOT DETECT)
== END 2024-05-18 12:13 | disposition home health service (06) | DRG 871 ==
LOC: M ED 22:20 → M ED INP 05-05 05:06 → M MSPAV 05-05 05:39
PROVIDERS: ADMIT Student in an Organized Health Care Education/Training Program; ATTEND Internal Medicine
PROC: 30233N1 Transfusion of Nonautologous Red Blood Cells into Peripheral Vein, Percutaneous Approach (ICD-10-PCS; principal; 2024-05-07)
DX: A41.9 Sepsis, unspecified organism (principal); J18.9 Pneumonia, unspecified organism; D61.818 Other pancytopenia; E46 Unspecified protein-calorie malnutrition; I47.19 Other supraventricular tachycardia; E87.20 Acidosis, unspecified; K57.32 Diverticulitis of large intestine without perforation or abscess without bleeding; N17.9 Acute kidney failure, unspecified; E27.40 Unspecified adrenocortical insufficiency; D84.9 Immunodeficiency, unspecified; S22.080A Wedge compression fracture of T11-T12 vertebra, initial encounter for closed fracture; J98.11 Atelectasis; E87.1 Hypo-osmolality and hyponatremia; D62 Acute posthemorrhagic anemia; Z66 Do not resuscitate; D46.9 Myelodysplastic syndrome, unspecified; N18.9 Chronic kidney disease, unspecified; K21.9 Gastro-esophageal reflux disease without esophagitis; E78.5 Hyperlipidemia, unspecified; I25.10 Atherosclerotic heart disease of native coronary artery without angina pectoris; M81.0 Age-related osteoporosis without current pathological fracture; E86.0 Dehydration; R91.8 Other nonspecific abnormal finding of lung field; M31.6 Other giant cell arteritis; R73.03 Prediabetes; E87.6 Hypokalemia; R00.2 Palpitations; N40.0 Benign prostatic hyperplasia without lower urinary tract symptoms; K44.9 Diaphragmatic hernia without obstruction or gangrene; M19.90 Unspecified osteoarthritis, unspecified site; D50.9 Iron deficiency anemia, unspecified; K22.70 Barrett's esophagus without dysplasia; M54.50 Low back pain, unspecified; G89.29 Other chronic pain; Z90.49 Acquired absence of other specified parts of digestive tract; Z85.828 Personal history of other malignant neoplasm of skin; Z98.41 Cataract extraction status, right eye; Z98.42 Cataract extraction status, left eye; Z95.5 Presence of coronary angioplasty implant and graft; Z79.82 Long term (current) use of aspirin; Z79.2 Long term (current) use of antibiotics; Z79.891 Long term (current) use of opiate analgesic; Z79.52 Long term (current) use of systemic steroids; Z79.899 Other long term (current) drug therapy; Z88.6 Allergy status to analgesic agent; Z11.52 Encounter for screening for COVID-19